=== PATIENT | female | born 1940 | race Caucasian/White ===

== ENCOUNTER 2019-05-15 06:36 | Day surgery (SDC) | payer MEDICARE, SELFPAY ==
--- NOTE | 2019-04-06 05:36 | HP_ITS ---
Intake Vital Signs 04/06/19 Body Mass Index (BMI) 32.5 04/06/19 Height 5 ft 04/06/19 Weight: 162 lb 3 oz 04/06/19 Body Mass Index (BMI) 31.6 04/06/19 Blood Pressure 150/82 H 04/06/19 Blood Pressure Location Rt brachial 04/06/19 Blood Pressure Position Sitting 04/06/19 Respiratory Rate 20 H 04/06/19 Pulse Rate 66 04/06/19 Pulse Ox 98 Intake Visit Reasons: EGD and repeat esophageal stretching Chief Complaint: egd and esophageal dilatation Melt Room Operator Required: No Is patient in pain?: No Allergies sulfamethoxazole [From Bactrim] Allergy (Mild, Verified 04/06/19 15:43) hives trimethoprim [From Bactrim] Allergy (Mild, Verified 04/06/19 15:43) hives Penicillins Allergy (Verified 06/24/15 08:16) Hives Medications Atenolol [Tenormin (beta Leeanne)] 25 mg PO BID 06/24/15 [History Confirmed 04/06/19] Furosemide 40 mg PO PRN PRN 06/24/15 [History Confirmed 04/06/19] Levothyroxine [Synthroid] 25 mcg PO DAILY 06/24/15 [History Confirmed 04/06/19] Meloxicam 15 mg PO DAILY 06/24/15 [History Confirmed 04/06/19] Potassium Chloride 10 meq PO PRN PRN 06/24/15 [History Confirmed 04/06/19] Warfarin [Coumadin (PBKC)] 2.5 mg PO SUTUTHSA 06/24/15 [History Confirmed 04/06/19] Warfarin [Coumadin (PBKC)] 5 mg PO MOWEFR 06/24/15 [History Confirmed 04/06/19] cholecalciferol (vitamin D3) 2,000 unit capsule 2,000 unit PO DAILY 04/06/19 [History Confirmed 04/06/19] glucosamine sulfate 500 mg tablet 500 mg PO BID 04/06/19 [History Confirmed 04/06/19] omega-3 fatty acids 1,000 mg capsule 1,000 mg PO DAILY 04/06/19 [History Confirmed 04/06/19] Is last menstrual period known: No Post menopausal: Yes Patient : No PFSH Medical History (Updated 04/06/19 @ 17:32 by Atul Cagle MD) Dysphagia (Acute) Severe esophageal dysplasia (Acute) Atrial fibrillation (Acute) CHF (congestive heart failure) (Acute) Diverticulosis (Acute) GERD (gastroesophageal reflux disease) (Acute) Hiatal hernia (Acute) History of colon polyps (Acute) Hypothyroidism (Acute) Osteoarthritis (Acute) Polio (Acute) Schatzki's ring (Acute) Surgical History (Updated 04/06/19 @ 15:40 by Noy Salinas) History of colonoscopy (Acute ~2015) History of esophageal dilatation (Acute ~2010) History of esophagogastroduodenoscopy (EGD) (Acute ~2010) History of foot surgery (Acute) History of mitral valve replacement (Acute) History of total hysterectomy (Acute) Family History (Updated 04/06/19 @ 15:41 by Noy Salinas) Brother Heart disease Father Colon cancer Social History (Updated 04/06/19 @ 17:36 by Atul Cagle MD) Smoking Status: Current every day smoker HPI HPI HPI: OVIDIO IBARRA, is a 78 F who presents to the office today for HPI HPI Surgical H&P: Yes HPI: OVIDIO IBARRA, is a 78 F who presents to the office today for surgical consultation today regarding esophageal dysphasia. Quite a complicated 68-year-old [facility] female. We have records from March 04, 2011 but because of dysphagia to meats and breads Dr. Bandar Pisano gastroenterology performed a upper endoscopy. A benign-appearing intrinsic mild stricture was found and traversed. It was treated with a TTS dilator to 18 mm. A small hiatal hernia was present. The patient is referred by Dr. Eric Lorenzo for surgical consultation regarding her progressive esophageal dysphasia and intermittent food bolus obstructions which have become more severe. A written compromise surgical consult recommendations will return to Dr. Lorenzo I have assisted the patient in the past on June 30, 2015 with a colonoscopy with biopsy of a diminutive sessile polyp of the distal sigmoid. The patient has a personal history of colon polyps and myocardial infarction and congestive heart failure and atrial fibrillation. She states that on 1 of her previous colonoscopies she had a significantly irregular heart rate afterwards causing her to be urgently transferred from the outpatient center to the hospital for admission. She goes on to state that she was on a cardiac medicine for 5 years but due to subsequent side effects of it it has been ceased and she currently is rate controlled with metoprolol. She is on chronic Coumadin anticoagulation. She has a mechanical mitral valve. Previously she has been briefly bridged with Lovenox. She has not had her Coumadin taken to full subtherapeutic levels. 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 She expressed an interest in transferring her cardiology care locally if possible ROS General General: Yes fatigue; no weight change, appetite, colon cancer, breast cancer or weakness HEENT HEENT: Yes difficulty swallowing; no eye injury, eye surgery, swollen glands or hoarseness Endo Endocrine: Yes thyroid disease; no diabetes mellitus, thyroid cancer, Hair loss, heat intolerance or cold intolerance Cardio Cardiovascular: Yes murmur, atrial fibrillation and high blood pressure; no pacemaker, heart disease, heart attack, heart stent, palpitations, shortness of breat with exertion or chest pain Additional Details: CHF, mitral valve replacement Resp Respiratory: Yes shortness of breath, No sleep apnea, No cough, No COPD, No asthma, No emphysema, No wheezing Gastro Gastrointestinal: No abdominal pain, No nausea or vomiting, No diarrhea, No constipation, No blood in stool, Yes acid reflux, No hemorrhoids, No ulcers, No gallbladder problem, No black,tarry stools Trey Hematologic: No blood thinners, No blood disorders, No bleeding, No anemia, No blood clots Neuro Neurologic: No weakness Exam Const General: cooperative, comfortable, no acute distress Nutritional Appearance: obese Orientation: alert, awake HENAR Head: normal to inspection Resp Effort & Inspection: normal respiratory effort Auscultation: clear to auscultation bilaterally Cardio Rate: regular rate Rhythm: regular rhythm Heart Sounds: murmur GI Palpation: soft, no hepatosplenomegaly Auscultation: normal bowel sounds Other: Overweight, not able to detect any internal organs Neuro Cognition: normal cognition Extrem General: no calf tenderness bilaterally Psych Affect: normal affect Assessment & Plan Problems 1. Esophageal dysphagia R13.10 Plan I am recommending the patient a esophagogastroduodenoscopy with possible biopsy or polypectomy and anticipated distal esophageal hydrostatic dilatation of anticipated Schatzki ring. She is aware of the technique, benefits, risks, alternatives. We will have her hold her Coumadin 2 days preprocedure and have her initiate Lovenox on the day prior to procedure 40 mg subcu twice daily. I anticipate continuing this through the day of surgery and postoperatively for a total of 3 days As noted above the patient is interested in converting her cardiology care locally. This would be very advantageous as on a previous colonoscopy she had a cardiac arrhythmia to the severity that required transfer from the outpatient surgery center to the hospital for hospitalization and rate control. At her request we will make an appointment with local cardiology Dr. Rhys Calzada. She has had an opportunity to ask and have questions answered. She is aware that esophageal dilatation does have a increased interventional risk. She is aware that her anticoagulation and mitral valve replacement and history of atrial fibrillation with RVR also carries increased risk. We will try to have her maximize prior to endoscopic intervention. I appreciate the ongoing opportunity of assisting with her surgical care CC: Dr. Eric Lorenzo and Dr. Rhys Cagle M.D., F.A.C.S. Coding Level of Care Code 92946 Diagnoses Esophageal dysphagia R13.10 ??Dysphagia type: esophageal phase 04/06/19 1736 <Electronically signed by Atul urrutia MD> Date _ Atul Cagle MD I have re-examined the patient. There are no clinical changes since date of exam.
[2019-04-06 15:46] VITALS: BMI 32.5
[2019-04-26 09:45] VITALS: BMI 32.0
[2019-05-15] VITALS (16 sets, daily range): BP systolic 105–132; BP diastolic 61–93; PULSE 59–77; RESP 14–18; TEMP 36.3–36.5; O2SAT 73–100; BMI 31.3
[2019-05-15 07:24] LABS: International Normalized Ratio 1.5; Prothrombin Time (Protime)PT. 18.1 SECONDS (11.7-14.9)
[2019-05-15] MEDS: Lactated Ringers 1,000 ML 100 ML IV (07:24)
--- NOTE | 2019-05-15 07:45 | EGD_PTH ---
PATIENT: OVIDIO IBARRA LOC: EN U#:[id number] AGE/SX: 78/F ROOM: RE05/15/[address]: Dr. Atul Cagle MD : 1940 BED: DIS: 05/15/2019 SPEC #: [id number] RECD: 05/15/19 09:29 STATUS: RADAMES JUAQUIN #: [id number] RAYNA: 05/15/19 07:[address]: Atul Cagle DEPT: SURGICAL PATHOLOGY RECD BY: Abel Reaves ENTERED: 05/15/19 11:03 SP TYPE: EGD BIOPSY OTHR DR: Dr. Yassine Lorenzo MD Tissues: A - Duodenum, NOS B - Gastric mucous membrane C - Gastric mucous membrane Procedures: Special Stain Group II Surgery Specimen Level IV Alcian Blue/PAS (control) HEADER OPERATION: EGD ([facility] [place]) with dilation PRE-OP DIAGNOSIS: Dysphagia TISSUE SUBMITTED: A - Duodenal biopsy, B - Antrum biopsy for histo and H. pylori, C - EG junction MICROSCOPIC DIAGNOSIS A. Duodenum, biopsy: No pathologic diagnosis. B. Gastric antrum, biopsy: Mild to moderate chronic gastritis. See comment. C. Gastroesophageal junction, biopsy: Mild chronic inflammation. Focal changes of reflux. No evidence of intestinal metaplasia. See comment. AM:romeo 05/16/19 COMMENT B. The results of immunohistochemistry for Helicobacter pylori will be reported separately ([id number]). C. Alcian blue/PAS stain with matched control is used in the evaluation of the specimen. MICROSCOPIC DESCRIPTION Slides are reviewed. GROSS DESCRIPTION A - Received in fixative is one container labeled with the patient's name and designated duodenal biopsy. The specimen consists of multiple irregular fragments of light jimenez soft tissue that in aggregate measure 0.4 x 0.3 x 0.1 cm. The specimen is totally submitted in one cassette. B - Received in fixative is one container labeled with the patient's name and designated antrum biopsy. The specimen consists of two irregular fragments of light jimenez soft tissue that in aggregate measure 0.5 x 0.2 x 0.1 cm. The specimen is totally submitted in one cassette. C - Received in fixative is one container labeled with the patient's name and designated EG junction biopsy. The specimen consists of two irregular fragments of light jimenez soft tissue that in aggregate measure 0.6 x 0.3 x 0.1 cm. The specimen is totally submitted in one cassette. / SJ:rg 05/15/19 TC:3 CPT: 97844 x3, 64278
--- NOTE | 2019-05-15 07:45 | IMM_PTH ---
PATIENT: OVIDIO IBARRA LOC: EN U#:[id number] AGE/SX: 78/F ROOM: RE05/15/[address]: Dr. Atul Cagle MD : 1940 BED: DIS: 05/15/2019 SPEC #: [id number] RECD: 05/15/19 12:07 STATUS: RADAMES REBryson #: [id number] RAYNA: 05/15/19 07:[address]: Atul Cagle DEPT: IMMUNOHISTOCHEMISTRY RECD BY: Siobhan Jeter ENTERED: 05/15/19 12:08 SP TYPE: IMMUNO OTHR DR: Dr. Yassine Lorenzo MD Tissues: B - Stomach, NOS Procedures: H Pylori (initial) PHYSICIAN & INSTITUTION [place] [id number] SPECIMEN INFORMATION: Tissue Source: B - Antrum biopsy Clinical Info: Dysphagia Specimen Number: [id number] CPT code: 68654 METHODOLOGY: Deparaffinized sections of prefer/formalin-fixed tissue or PAP/DQ stained slides are incubated with monoclonal/polyclonal antibodies/oligonucleotide probes. Localization is made via biotin free immunoperoxidase method. Appropriate controls are performed and reacted as expected. Results on target cell population are indicated in the following table: RESULTS: ANTIBODY / CLONE RESULT Block B H Pylori (polyclonal) negative These tests were developed and their performance characteristics determined by [facility]. They may not have been cleared or approved by the U.S. Food and Drug Administration. The FDA has determined that such clearance or approval is not necessary. INTERPRETATION: B. Antrum biopsy: Negative for Helicobacter pylori organisms. AM:romeo 05/17/19
[2019-05-15] MEDS: Ceftriaxone 1 GM/50 mL Premix x1 IV (07:55)
--- NOTE | 2019-05-15 08:00 | HP_ITS ---
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: No Is patient in pain?: No Allergies sulfamethoxazole [From Bactrim] Allergy (Mild, Verified 04/06/19 15:43) hives trimethoprim [From Bactrim] Allergy (Mild, Verified 04/06/19 15:43) hives Penicillins Allergy (Verified 06/24/15 08:16) Hives Medications Atenolol [Tenormin (beta Leeanne)] 25 mg PO BID 06/24/15 [History Confirmed 04/06/19] Furosemide 40 mg PO PRN PRN 06/24/15 [History Confirmed 04/06/19] Levothyroxine [Synthroid] 25 mcg PO DAILY 06/24/15 [History Confirmed 04/06/19] Meloxicam 15 mg PO DAILY 06/24/15 [History Confirmed 04/06/19] Potassium Chloride 10 meq PO PRN PRN 06/24/15 [History Confirmed 04/06/19] Warfarin [Coumadin (PBKC)] 2.5 mg PO SUTUTHSA 06/24/15 [History Confirmed 04/06/19] Warfarin [Coumadin (PBKC)] 5 mg PO MOWEFR 06/24/15 [History Confirmed 04/06/19] cholecalciferol (vitamin D3) 2,000 unit capsule 2,000 unit PO DAILY 04/06/19 [History Confirmed 04/06/19] glucosamine sulfate 500 mg tablet 500 mg PO BID 04/06/19 [History Confirmed 04/06/19] omega-3 fatty acids 1,000 mg capsule 1,000 mg PO DAILY 04/06/19 [History Confirmed 04/06/19] Is last menstrual period known: No Post menopausal: Yes Patient : No PFSH Medical History (Updated 04/06/19 @ 17:32 by Atul Cagle MD) Dysphagia (Acute) Severe esophageal dysplasia (Acute) Atrial fibrillation (Acute) CHF (congestive heart failure) (Acute) Diverticulosis (Acute) GERD (gastroesophageal reflux disease) (Acute) Hiatal hernia (Acute) History of colon polyps (Acute) Hypothyroidism (Acute) Osteoarthritis (Acute) Polio (Acute) Schatzki's ring (Acute) Surgical History (Updated 04/06/19 @ 15:40 by Noy Salinas) History of colonoscopy (Acute ~2015) History of esophageal dilatation (Acute ~2010) History of esophagogastroduodenoscopy (EGD) (Acute ~2010) History of foot surgery (Acute) History of mitral valve replacement (Acute) History of total hysterectomy (Acute) Family History (Updated 04/06/19 @ 15:41 by Noy Salinas) Brother Heart disease Father Colon cancer Social History (Updated 04/06/19 @ 17:36 by Atul Cagle MD) Smoking Status: Current every day smoker HPI HPI HPI: OVIDIO IBARRA, is a 78 F who presents to the office today for HPI HPI Surgical H&P: Yes HPI: OVIDIO IBARRA, is a 78 F who presents to the office today for surgical consultation today regarding esophageal dysphasia. Quite a complicated 68-year-old [facility] female. We have records from March 04, 2011 but because of dysphagia to meats and breads Dr. Bandar Pisano gastroenterology performed a upper endoscopy. A benign-appearing intrinsic mild stricture was found and traversed. It was treated with a TTS dilator to 18 mm. A small hiatal hernia was present. The patient is referred by Dr. Eric Lorenzo for surgical consultation regarding her progressive esophageal dysphasia and intermittent food bolus obstructions which have become more severe. A written compromise surgical consult recommendations will return to Dr. Lorenzo I have assisted the patient in the past on June 30, 2015 with a colonoscopy with biopsy of a diminutive sessile polyp of the distal sigmoid. The patient has a personal history of colon polyps and myocardial infarction and congestive heart failure and atrial fibrillation. She states that on 1 of her previous colonoscopies she had a significantly irregular heart rate afterwards causing her to be urgently transferred from the outpatient center to the hospital for admission. She goes on to state that she was on a cardiac medicine for 5 years but due to subsequent side effects of it it has been ceased and she currently is rate controlled with metoprolol. She is on chronic Coumadin anticoagulation. She has a mechanical mitral valve. Previously she has been briefly bridged with Lovenox. She has not had her Coumadin taken to full subtherapeutic levels. 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 She expressed an interest in transferring her cardiology care locally if possible ROS General General: Yes fatigue; no weight change, appetite, colon cancer, breast cancer or weakness HEENT HEENT: Yes difficulty swallowing; no eye injury, eye surgery, swollen glands or hoarseness Endo Endocrine: Yes thyroid disease; no diabetes mellitus, thyroid cancer, Hair loss, heat intolerance or cold intolerance Cardio Cardiovascular: Yes murmur, atrial fibrillation and high blood pressure; no pacemaker, heart disease, heart attack, heart stent, palpitations, shortness of breat with exertion or chest pain Additional Details: CHF, mitral valve replacement Resp Respiratory: Yes shortness of breath, No sleep apnea, No cough, No COPD, No asthma, No emphysema, No wheezing Gastro Gastrointestinal: No abdominal pain, No nausea or vomiting, No diarrhea, No constipation, No blood in stool, Yes acid reflux, No hemorrhoids, No ulcers, No gallbladder problem, No black,tarry stools Trey Hematologic: No blood thinners, No blood disorders, No bleeding, No anemia, No blood clots Neuro Neurologic: No weakness Exam Const General: cooperative, comfortable, no acute distress Nutritional Appearance: obese Orientation: alert, awake HENRI Head: normal to inspection Resp Effort & Inspection: normal respiratory effort Auscultation: clear to auscultation bilaterally Cardio Rate: regular rate Rhythm: regular rhythm Heart Sounds: murmur GI Palpation: soft, no hepatosplenomegaly Auscultation: normal bowel sounds Other: Overweight, not able to detect any internal organs Neuro Cognition: normal cognition Extrem General: no calf tenderness bilaterally Psych Affect: normal affect Assessment & Plan Problems 1. Esophageal dysphagia R13.10 Plan I am recommending the patient a esophagogastroduodenoscopy with possible biopsy or polypectomy and anticipated distal esophageal hydrostatic dilatation of anticipated Schatzki ring. She is aware of the technique, benefits, risks, alternatives. We will have her hold her Coumadin 2 days preprocedure and have her initiate Lovenox on the day prior to procedure 40 mg subcu twice daily. I anticipate continuing this through the day of surgery and postoperatively for a total of 3 days As noted above the patient is interested in converting her cardiology care locally. This would be very advantageous as on a previous colonoscopy she had a cardiac arrhythmia to the severity that required transfer from the outpatient surgery center to the hospital for hospitalization and rate control. At her request we will make an appointment with local cardiology Dr. Rhys Calzada. She has had an opportunity to ask and have questions answered. She is aware that esophageal dilatation does have a increased interventional risk. She is aware that her anticoagulation and mitral valve replacement and history of atrial fibrillation with RVR also carries increased risk. We will try to have her maximize prior to endoscopic intervention. I appreciate the ongoing opportunity of assisting with her surgical care CC: Dr. Eric Lorenzo and Dr. Rhys Cagle M.D., F.A.C.S. Coding Level of Care Code 42453 Diagnoses Esophageal dysphagia R13.10 ??Dysphagia type: esophageal phase
[2019-05-15 08:16] LABS: Prothrombin Time Fingerstick 18.9 SEC (11.9-14.4)
--- NOTE | 2019-05-15 08:21 | OP.EGD_ITS ---
Patient Name: Gisell Vargas Procedure Date: 05/15/2019 7:46 AM Date of : 1940 Age: 78 Procedure: Upper GI endoscopy Indications: Dysphagia Providers: Atul Cagle MD Medicines: See the Anesthesia note for documentation of the administered medications Complications: No immediate complications. Procedure: Pre-Anesthesia Assessment: - Prior to the procedure, a History and Physical was performed, and patient medications and allergies were reviewed. The patient's tolerance of previous anesthesia was also reviewed. The risks and benefits of the procedure and the sedation options and risks were discussed with the patient. All questions were answered, and informed consent was obtained. Prior Anticoagulants: The patient has taken Coumadin (warfarin), last dose was 2 days prior to procedure. ASA Grade Assessment: II - A patient with mild systemic disease. After reviewing the risks and benefits, the patient was deemed in satisfactory condition to undergo the procedure. After obtaining informed consent, the endoscope was passed under direct vision. Throughout the procedure, the patient's blood pressure, pulse, and oxygen saturations were monitored continuously. The gastroscope was introduced through the mouth, and advanced to the second part of duodenum. The upper GI endoscopy was accomplished without difficulty. The patient tolerated the procedure well. Scope In: 7:59:34 AM Scope Out: 8:11:54 AM Total Procedure Duration Time 0 hours 12 minutes 20 seconds Findings: LA Grade B (one or more mucosal breaks greater than 5 mm, not extending between the tops of two mucosal folds) esophagitis with bleeding was found 35 cm from the incisors. Biopsies were taken with a cold forceps for histology. A moderate Schatzki ring was found at the gastroesophageal junction. A TTS dilator was passed through the scope. Dilation with an 18-19-20 mm balloon dilator was performed to 20 mm. The dilation site was examined and showed moderate improvement in luminal narrowing. Estimated blood loss was minimal. Diffuse mild inflammation characterized by erythema was found in the gastric antrum. Biopsies were taken with a cold forceps for histology. Diffuse mildly erythematous mucosa without active bleeding and with no stigmata of bleeding was found in the duodenal bulb. Biopsies were taken with a cold forceps for histology. Impression: - LA Grade B reflux esophagitis. Biopsied. - Moderate Schatzki ring. Dilated. - Chronic gastritis. Biopsied. - Erythematous duodenopathy. Biopsied. Recommendation: - Discharge patient to home. - Resume previous diet. - Continue present medications. - Use Prilosec (omeprazole) 20 mg PO daily. - Telephone my office for pathology results in 1 week. Procedure Code(s): --- Professional --- 06072, Esophagogastroduodenoscopy, flexible, transoral; with transendoscopic balloon dilation of esophagus (less than 30 mm diameter) 23594, 59, Esophagogastroduodenoscopy, flexible, transoral; with biopsy, single or multiple Diagnosis Code(s): --- Professional --- K21.0, Gastro-esophageal reflux disease with esophagitis K22.2, Esophageal obstruction K29.50, Unspecified chronic gastritis without bleeding K31.89, Other diseases of stomach and duodenum R13.10, Dysphagia, unspecified CPT copyright 2017 [employer]. All rights reserved. The codes documented in this report are preliminary and upon welding setter review may be revised to meet current compliance requirements. Atul Cagle MD 05/15/2019 8:20:52 AM This report has been signed electronically. Number of Addenda: 0 Note Initiated On: 05/15/2019 7:46 AM
== END 2019-05-15 10:23 | disposition home or self-care (01) ==
LOC: EN 06:37 → AC 07:06
PROVIDERS: Family Provider Family Medicine; PCP Family Medicine; Referring Provider Family Medicine; Visit Provider Surgery
PROC: 0DJ08ZZ Inspection of Upper Intestinal Tract, Via Natural or Artificial Opening Endoscopic (ICD-10-PCS; CPT 43235; principal; 2019-05-15 07:40)
DX: K21.0 Gastro-esophageal reflux disease with esophagitis (principal); K22.2 Esophageal obstruction; K29.50 Unspecified chronic gastritis without bleeding; K31.89 Other diseases of stomach and duodenum; R13.10 Dysphagia, unspecified; I48.91 Unspecified atrial fibrillation; I50.9 Heart failure, unspecified; I25.2 Old myocardial infarction; E03.9 Hypothyroidism, unspecified; M19.90 Unspecified osteoarthritis, unspecified site; E66.9 Obesity, unspecified; Z68.32 Body mass index [BMI] 32.0-32.9, adult; Z79.01 Long term (current) use of anticoagulants; Z79.899 Other long term (current) drug therapy; F17.200 Nicotine dependence, unspecified, uncomplicated
CPT/HCPCS: 43239; 43249; 36416; 85610; 88305; 88313; 88342; J7120; J2405

== ENCOUNTER 2019-05-26 19:21 | Inpatient (IN) | payer MEDICARE, SELFPAY ==
[2019-05-15 07:18] VITALS: BMI 31.3
[2019-05-26] VITALS (11 sets, daily range): BP systolic 168–211; BP diastolic 81–95; PULSE 66–78; RESP 16–18; TEMP 36.5–36.8; O2SAT 96–98; BMI 31.8; BMI 31.7
--- NOTE | 2019-05-26 19:40 | EKG12_ITS ---
Test Reason : STROKE ALERT Blood Pressure : / mmHG Vent. Rate : 071 BPM Atrial Rate : 208 BPM P-R Int : 000 ms QRS Dur : 098 ms QT Int : 414 ms P-R-T Axes : 000 034 039 degrees QTc Int : 449 ms Atrial fibrillation Abnormal ECG Confirmed by MIKE ROBLES, FLY ([id number]), news copy editor WAGNER GARCIA ([id number]) on 05/30/2019 12:59:12 PM Referred By: Lisa Baker Confirmed By:FLY MCKEON MD
--- NOTE | 2019-05-26 19:40 | CT_ITS ---
We are attempting to reach an attending provider to discuss findings. An addendum with communication details will be sent when the communication is complete. STUDY: CT BRAIN WITHOUT CONTRAST REASON FOR EXAM: Female, 78 years old. Left upper extremity weakness RADIATION DOSAGE (If Supplied By Facility): CTDIvol = ( 44.99 ) mGy, DLP = ( 779.24 ) mGycm TECHNIQUE: Transaxial CT imaging of the brain was performed without administration of intravenous contrast material. Individualized dose optimization techniques were used for this CT. COMPARISON: No relevant priors. FINDINGS: Normal soft tissue structures. Hyperostosis frontalis interna. Remote deformity of the left lamina papyracea. Normal size ventricles and extra-axial spaces for the patient''s age. There are areas of decreased attenuation within the white matter tracts of the supratentorial brain, consistent with microvascular disease changes. Normal age-related changes of the basal ganglia. Normal brainstem. Normal cerebellum. There is no intracranial hemorrhage. There are no findings of an acute ischemic infarction. Normal visualized paranasal sinuses. CT/Brain/Head without Contrast IMPRESSION: No CT evidence of acute infarct or hemorrhage. If there is clinical concern for hyperacute ischemia that is not evident by CT, MRI should be considered if possible. Electronically Signed: Aramis Kaiser MD at 19:59 EST Tel , Service support ,
--- NOTE | 2019-05-26 19:41 | CT_ITS ---
STUDY: CTA HEAD AND NECK WITH CONTRAST REASON FOR EXAM: Female, 78 years old. Left upper extremity weakness RADIATION DOSAGE (If Supplied By Facility): CTDIvol = ( 21.09 ) mGy, DLP = ( 603.46 ) mGycm TECHNIQUE: CT angiography was performed with a multi-detector CT scanner. Data acquisition was obtained from the skull base through the vertex following intravenous administration of Isovue 370 75ml. MIP images were reconstructed from the axial data set. Post-processing of the angiographic images was performed, with multiplanar reformation and 3D reconstruction. Individualized dose optimization techniques were used for this CT. COMPARISON: No relevant priors. FINDINGS: Intracranial ICA calcifications. Otherwise: Normal bilateral petrous carotid arteries. Normal right cavernous carotid artery with a normal supraclinoid bifurcation. Normal left cavernous carotid artery with a normal supraclinoid bifurcation. Normal right A1 segments of the anterior cerebral artery. Normal left A1 segments of the anterior cerebral artery. Normal intact anterior communicating artery (ACOM). Normal bilateral A2 segments of the anterior cerebral arteries. Normal right M1 and M2 segments of the middle cerebral arteries, with a normal M1 bifurcation. Normal left M1 and M2 segments of the middle cerebral arteries, with a normal M1 bifurcation. Normal right posterior communicating artery (PCOM). There is non-visualization of the left posterior communicating artery (PCOM). Normal bilateral vertebral arteries. Normal basilar artery with a normal basilar bifurcation. The visualized bilateral superior cerebellar (SCA) arteries are normal. Normal bilateral P1, P2 and visualized P3 segments of the posterior cerebral arteries. There is no demonstrated aneurysm of the [place]. There is no demonstrated abnormality of the visualized brain. AORTIC ARCH: Normal visualized aortic arch. Normal origins of the brachiocephalic, left common carotid, and left subclavian arteries. RIGHT CAROTID ARTERIES: Normal right common carotid artery (CCA). Mild eccentric calcified bulb plaque without underlying stenosis. Normal origin of the right internal carotid (ICA) artery without a hemodynamically significant stenosis. Normal visualized cervical portion of the right internal carotid artery. Normal origin of the right external carotid artery (ECA). LEFT CAROTID ARTERIES: Normal left common carotid artery (CCA). Normal left common carotid bulb. Normal origin of the left internal carotid (ICA) artery without a hemodynamically significant stenosis. Normal visualized cervical portion of the left internal carotid artery. Normal origin of the left external carotid artery (ECA). VERTEBRAL ARTERIES: Normal bilateral vertebral arteries. Median sternotomy wires. CT/CTA Head AND Neck W/ Contrast IMPRESSION: No CTA evidence of significant intracranial arterial pathology. No CTA evidence of significant arterial pathology in the neck. NASCET criteria was used. Electronically Signed: Aramis Kaiser MD at 20:25 EST Tel , Service support ,
--- NOTE | 2019-05-26 19:42 | ED.DCSUM_ITS ---
History of Present Illness Chief Complaint: Numb/Ting Informant: Patient, Significant Other Onset: Today Context: Sudden Onset Timing: Continuous Quality and Location: Left Facial Droop, Left Arm Parasthesia, Left Arm Weakness Current Severity: Mild Maximum Severity: Moderate Worsened by: Nothing Relieved by: Nothing Associated Symptoms: Negative for: Headache, Nausea, Vomiting, Chest Pain Narrative: 8-year-old woman history of mitral valve replacement on Coumadin who presents with numbness left upper extremity predominately hand with difficulty using left upper extremity and facial droop that was first noted at 1815. She has no other symptoms or complaints. She states she is on atenolol and Coumadin. She does not know doses. Do not know what other meds she is on. Prior similar symptoms: No Recent Illness/Hospitalization: No - Past Medical History (1) Chronic atrial fibrillation Status: Chronic (2) Dysphagia Status: Chronic (3) Rheumatic mitral stenosis Status: Chronic Comment: [facility] (4) History of mitral valve replacement with mechanical valve Status: Resolved Comment: #[facility] 11/11/1998 Past Medical History - Allergies and Home Meds Allergies/Adverse Reactions: Allergies sulfamethoxazole [From Bactrim] Allergy (Mild, Verified 05/26/19 19:24) hives trimethoprim [From Bactrim] Allergy (Mild, Verified 05/26/19 19:24) hives Penicillins Allergy (Verified 05/26/19 19:24) Hives Primary Care Physician: Yassine Lorenzo MD [Primary Care Provider] - Prior records reviewed: Yes Surgical History: - - Prosthetic mitral valve Lives: Spouse/ Significant Other Smoking Status: Never smoker Alcohol: None Drugs: None Review of Systems General: Denies: Chills, Fever, Sweats Eyes: Denies: Visual changes - bilaterally, Blurred Vision - bilaterally, Diplopia ENT: Denies: Rhinorrhea, Sore throat Cardiovascular: Denies: Chest pain, Palpitations Respiratory: Denies: Dyspnea, Cough, Dyspnea on exertion Gastrointestinal: Denies: Abdominal pain, Nausea, Vomiting, Diarrhea, Melena, Hematochezia Genitourinary: Denies: Dysuria, Hematuria, Frequency Musculoskeletal: Denies: Myalgias, Arthralgias, Neck pain, Back pain, Swelling, Extremity Pain Skin: Denies: Rash, Wounds Neurological: Reports: Weakness, Parasthesia, Numbness. Denies: Headache Hematologic: Denies: Easy bruising, Easy bleeding STROKE Vital Signs/Narrative: Vital Signs Temp Pulse Resp BP Pulse Ox 05/26/19 19:23 98.3 F 66 18 181/92 H 98 Inital Vital Signs reviewed: Yes - NIHSS Initial 1a Level of Consciousness: 0 1b LOC Questions (Score 2 if aphasic/stupor): 0 1c LOC Commands (Only score 1st attempt): 0 2 Best Gaze (If aphasic, use reflexive mvmts.): 0 3 Visual: 0 4 Facial Palsy: 1 5 Motor Arm Right (UN = amputation/fusion): 0 5 Motor Arm Left: 0 6 Motor Leg Right: 0 6 Motor Leg Left: 0 7 Limb ataxia (Only + if out of proportion): 0 8 Sensory (Aphasia/stupor=0 or 1, coma=2): 1 9 Best Language: 0 10 Dysarthria (mute, coma=2, intubated=UN): 0 11 Extinction and Inattention (only scored if +): 0 Total Score: 2 General: Well nourished, Well developed, Obese Head: Normocephalic, Atraumatic. Negative for: Trauma, Tenderness Eyes: Perrl, EOMI. Negative for: Pale conjunctiva, Scleral icterus ENT: Moist mucous membranes, No rhinorrhea, - - Negative for carotid bruits Neck: Supple, Nontender, No lymphadenopathy, No JVD, - Cardiovascular: Regular rhythm, No murmurs, Normal S1, Normal S2, Irregular, - - Prosthetic valve noted Respiratory: No distress, CTA bilaterally, Chest nontender Abdomen: Soft, Nontender, Nondistended, Normal bowel sounds Rectal: Deferred Back: Nontender, Normal Inspection Extremities: Nontender, No edema Skin: Normal color, No Trauma, Pallor. Negative for: Cyanosis, Diaphoresis, Jaundice Neurological: Alert, Oriented x3, Normal Strength, Normal Sensation, Normal DTR. Negative for: Cranial nerves II-XII grossly intact Psychological: Normal affect Diagnostic/Tx/Re-eval Impressions Brain CT 05/26/19 19:40 IMPRESSION: No CT evidence of acute infarct or hemorrhage. If there is clinical concern for hyperacute ischemia that is not evident by CT, MRI should be considered if possible. Electronically Signed: Aramis Kaiser MD at 19:59 EST Tel , Service support , ADDENDUM: 05/26/192009 IMPRESSION: No CT evidence of acute infarct or hemorrhage. If there is clinical concern for hyperacute ischemia that is not evident by CT, MRI should be considered if possible. N.B. : The above information has been verbally conveyed by Aramis Kaiser MD to Raghu Hunt MD, on 05/26/2019 20:03:45 (ET). Electronically Signed: Aramis Kaiser MD at 19:59 EST Tel , Service support , Head/Neck CTA 05/26/19 19:41 IMPRESSION: No CTA evidence of significant intracranial arterial pathology. No CTA evidence of significant arterial pathology in the neck. NASCET criteria was used. Electronically Signed: Aramis Kaiser MD at 20:25 EST Tel , Service support , 05/26/19 19:40 Brain/Head without Contrast [CT] Stat 05/26/19 19:41 CTA Head AND Neck W/ Contrast [CT] Stat Laboratory Results 05/26/19 05/26/19 05/26/19 19:40 20:01 20:01 WBC 5.2 RBC 4.01 L Hgb 13.3 Hct 39.1 MCV 97.5 MCH 33.2 H MCHC 34.0 RDW Std Deviation 46.5 H RDW Coeff of [place] 13.1 Plt Count 111 L MPV 11.1 Immature Gran % (Auto) 0.200 Neut % (Auto) 48.8 Lymph % (Auto) 34.4 [place] % (Auto) 13.5 H Eos % (Auto) 2.7 Baso % (Auto) 0.4 Absolute Neuts (auto) 2.5 Absolute Lymphs (auto) 1.78 Nucleated RBC % 0 PT 36.2 H INR 3.6 H* APTT 53.1 H Sodium Potassium Chloride Carbon Dioxide Anion Gap BUN Creatinine Estim Creat Clear Calc Est GFR (MDRD) Af Amer Est GFR (MDRD) Non-Af BUN/Creatinine Ratio Glucose Calcium POC Glucose 104 05/26/19 20:01 WBC RBC Hgb Hct MCV MCH MCHC RDW Std Deviation RDW Coeff of [place] Plt Count MPV Immature Gran % (Auto) Neut % (Auto) Lymph % (Auto) [place] % (Auto) Eos % (Auto) Baso % (Auto) Absolute Neuts (auto) Absolute Lymphs (auto) Nucleated RBC % PT INR APTT Sodium 148 H Potassium 3.0 L Chloride 118 H Carbon Dioxide 26.0 Anion Gap 4 L BUN 15 Creatinine 0.66 Estim Creat Clear Calc 34.38 Est GFR (MDRD) Af Amer 111 Est GFR (MDRD) Non-Af 92 BUN/Creatinine Ratio 22.7 H Glucose 78 Calcium 6.5 L* POC Glucose There is elevated 3.6 which eliminates patient from TPA. Furthermore symptoms are improving and NAH at the time the neurologist from [facility] performed her exam the NIH had decreased to 1. Calcium is low at 6.5. Will inform hospitalist of this fact. Will need to obtain albumin and possibly ionized calcium level. This may be the cause of her numbness but would not expect this to be the cause of her focal motor deficit. - EKG Initial EKG Interpretation: Atrial Fibrillation - Rate of 71. QRS duration is 80 ms. QT durations normal. There is no ischemic changes noted. - Medical Decision Making Stroke Team Activated: Yes Reviewed Inclusion/Exclusion criteria: Yes Was Patient considered for Endovascular Intervention?: Yes History and physical consistent what right hemispheric stroke. Since patient is on Coumadin nurse was asked to draw blood work for PT/INR immediately. CT of the head as well as CTA of the head and neck was ordered. Since there is a history of atrial fib one needs to consider embolic phenomenon as well as thrombotic phenomenon. 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
[2019-05-26 19:46] LABS: Bedside Glucose 104 mg/dL (70-110)
[2019-05-26 20:11] LABS: Absolute Lymphocyte Count 1.78 X10^3/uL (0.83-4.51); Absolute Neutrophil Count 2.5 X10^3/uL (2.0-7.7); Basophil# 0.02 X10^3/uL; Basophil% 0.4 % (0-1); Eosinophil# 0.14 X10^3/uL; Eosinophils% 2.7 % (0-5); Hematocrit 39.1 % (37-47); Hemoglobin 13.3 g/dL (12.0-15.0); Lymphocyte # 1.78 X10^3/ul (4.0); Lymphocyte % 34.4 % (19-41); Mean Corpuscular Hgb 33.2 pg (27.0-32.0); Mean Corpuscular Volume 97.5 fL (81-99); Mean Platelet Vol. 11.1 fl (6.2-12.0); Monocyte% 13.5 % (0-10); NRBC Flagged by Analyzer 0 % (0-5); Neutrophil # 2.52 X10^3/uL (2.7-7.7); Neutrophil % 48.8 % (47-70); Platelet Count 111 K/mm3 (150-450); RBC Distribution Width CV 13.1 % (11.6-14.6); RBC Distribution Width SD 46.5 fl (35.1-43.9); Red Blood Count 4.01 M/mm3 (4.2-5.4); White Blood Count 5.2 K/mm3 (4.4-11.0)
[2019-05-26 20:22] LABS: Prothrombin Time (Protime)PT. 36.2 SECONDS (11.7-14.9)
[2019-05-26 20:23] LABS: Partial Thromboplast Time 53.1 Seconds (24.1-36.2)
[2019-05-26 20:28] LABS: International Normalized Ratio 3.6
[2019-05-26 20:50] LABS: Anion Gap 4 (5-15); BUN 15 mg/dL (7-18); BUN/Creat Ratio 22.7 RATIO (10-20); Calcium,Total 6.5 mg/dL (8.5-10.1); Chloride 118 mmol/L (98-107); Creatinine, Serum 0.66 mg/dL (0.55-1.02); EST Glomerular Filtration Rate 92 mL/min (>60); Est Glom Filt Rate - Afr Amer 111 mL/min (>60); Estimated Creatinine Clearance 34.38 ml/min; Glucose 78 mg/dL (74-106); Sodium Level 148 mmol/L (136-145)
[2019-05-26 21:51] LABS: Albumin, Serum 2.6 g/dL (3.2-5.0)
[2019-05-27] VITALS (12 sets, daily range): BP systolic 117–152; BP diastolic 64–81; PULSE 55–86; RESP 16–18; TEMP 36.3–36.7; O2SAT 95–97; BMI 31.7
--- NOTE | 2019-05-27 00:29 | ECHOD_ITS ---
Reason For Study: TIA/CVA Procedure This was a 2D Doppler, Color Flow transthoracic echocardiogram. Exam performed portable in patient room. Left Ventricle Normal LV size. Mild concentric left ventricular hypertrophy. Left ventricular systolic function is lower limits of normal. The estimated ejection fraction is 50 %. Right Ventricle Normal RV size. Normal systolic function. Atria The left atrium is moderately enlarged. Normal right atrium. Mitral Valve There is mild mitral annular calcification. Mean transmitral valve gradient 3.5 mmHg. Stable appearing mechanical mitral valve apparatus. Tricuspid Valve Normal tricuspid valve. Mild (1+) tricuspid valve insufficiency. Pulmonary artery systolic pressure is 26 mmHg. Aortic Valve Trisinus/trileaflet aortic valve. Mild (1+) aortic valve insufficiency. Pulmonic Valve The pulmonic valve is not well visualized. Great Vessels Normal aortic root. The pulmonary artery is normal size. Normal inferior vena cava. Pericardium/Pleural No pericardial effusion. Medication Performed a rapid injection of agitated mix of 9 cc saline and 1cc air to assess for atrial septal defect. MMode/2D Measurements & Calculations LVIDd: 3.7 cm IVSd: 1.3 cm Ao root diam: 3.1 cm LVIDs: 2.4 cm LVPWd: 1.3 cm FS: 33.4 % LAV(MOD-bp): 152.0 ml LA A4 area: 29.5 cm2 LA dimension(2D): 6.1 cm LAV(MOD-bp) Indexed: 89.1 ml/m2 LAV(MOD-sp2): 173.5 ml LAV(MOD-sp4): 108.0 ml RA A4 area: 17.0 cm2 Doppler Measurements & Calculations MV E max roxanna: 135.1 cm/sec MV V2 max: 151.3 cm/sec MV P1/2t max roxanna: 146.1 cm/sec MV max P.2 mmHg MV P1/2t: 60.9 msec MV V2 mean: 85.5 cm/sec MV dec slope: 703.2 cm/sec2 MV mean P.5 mmHg MV V2 VTI: 22.0 cm MVA(P1/2t): 3.6 cm2 Ao V2 max: 97.4 cm/sec LV V1 max: 62.1 cm/sec PA V2 max: 62.6 cm/sec Ao max P.8 mmHg LV V1 max P.5 mmHg TR max roxanna: 238.7 cm/sec TR max P.8 mmHg Interpretation Summary Normal LV size. Mild concentric left ventricular hypertrophy. The left atrium is moderately enlarged. Left ventricular systolic function is lower limits of normal. The estimated ejection fraction is 50 %. Stable appearing mechanical mitral valve apparatus. Mean transmitral valve gradient 3.5 mmHg. Ordering Physician: Lisa Baker Referring Physician: Lisa Baker Performed By: Yeny Fung RDCS
[2019-05-27] MEDS: 0.9% Normal Saline 1,000 ML 50 ML IV (01:20)
[2019-05-27] MEDS: 0.9% Saline Lock 10 ML Syringe IV (01:33)
--- NOTE | 2019-05-27 02:06 | PCM.HP.STD ---
Problem List (1) CVA (cerebral vascular accident) Status: Acute Qualifiers: CVA mechanism: unspecified Qualified Code(s): I63.9 - Cerebral infarction, unspecified History of Present Illness Date of Admission: 05/26/19 The patient is a 78 year old F who was normal until 17:44 this evening when she was sitting at the table trying to open the jelly jar and had acute onset of L hand numbness and uncoordination. She is R handed. She did not have slurred speech and per family she has a bit of chronic facial droop on the L and it was no nor pronounced than usual. Per the daughter her responses were delayed a bit. Her family reports that she is now back to her baseline. She has a h/o A-fib and mechanical mitral valve replacement and is on OAC with coumadin. Her last INR as an outpt was this past Tuesday and was 2.6. No changes were made at that time. INR here today is 3.6. She does admit that she was off of her coumadin on May 13 and for and EGD that was done on 05/15. She restarted her coumadin on the . Her INR are unknown during that time period or the few days following. NIH is currently 0. No tPA was given as her sx resolved and she is on coumadin with at therapeutic desired range of 2.5-3.5. Past Medical History Past Medical History (Chronic Problems): Chronic Problems (Last Reviewed 05/27/19 @ 00:19 by Lisa Baker DO) Chronic atrial fibrillation (Chronic) Rheumatic mitral stenosis (Chronic) #29 [facility] [place] Dysphagia (Chronic) Medical History: Medical History (Last Reviewed 05/27/19 @ 00:19 by Lisa Baker DO) Chronic atrial fibrillation (Chronic) I48.20 Rheumatic mitral stenosis (Chronic) I05.[address] [place] Dysphagia (Chronic) R13.10 Diverticulosis K57.90 GERD (gastroesophageal reflux disease) K21.9 Hiatal hernia K44.9 History of colon polyps Z86.010 Hypothyroidism E03.9 Obesity E66.9 Osteoarthritis M19.90 Polio A80.9 Schatzki's ring K22.2 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 Allergies sulfamethoxazole [From Bactrim] Allergy (Mild, Verified 05/26/19 19:24) hives trimethoprim [From Bactrim] Allergy (Mild, Verified 05/26/19 19:24) hives Penicillins Allergy (Verified 05/26/19 19:24) Hives Home Medications: Ambulatory Orders Medication Instructions Recorded Furosemide 40 mg PO PRN PRN 06/24/15 Levothyroxine [Synthroid] 25 mcg PO DAILY 06/24/15 Meloxicam 15 mg PO DAILY 06/24/15 Potassium Chloride 10 meq PO PRN PRN 06/24/15 Warfarin [Coumadin] 2.5 mg PO MOWEFR 06/24/15 Warfarin [Coumadin] 5 mg PO SUTUTHSA 06/24/15 glucosamine sulfate 500 mg tablet 500 mg PO BID 04/06/19 omega-3 fatty acids 1,000 mg 1,000 mg PO DAILY 04/06/19 capsule atenolol 25 mg tablet 50 mg PO BID 04/26/19 Calcium Carbonate/Vitamin D3 1 ea PO DAILY 05/09/19 [Caltrate 600 Plus D3 Tablet] Glucosam/Quinn-Msm1/C/Casey/Bosw 1 ea PO BID 05/09/19 [Osteo Bi-Flex Caplet] Omeprazole 20 mg PO DAILY 05/26/19 Surgical History: Surgical History (Last Reviewed 05/27/19 @ 00:19 by Lisa Baker DO) History of mitral valve replacement with mechanical valve (Resolved) Onset Date: 11/11/[address] [facility] 11/11/1998 History of cardioversion Onset Date: ~03/2008 Z98.890 2006, 2007 History of colonoscopy Onset Date: ~2015 Z98. History of esophageal dilatation Onset Date: ~2010 Z98. History of esophagogastroduodenoscopy (EGD) Onset Date: ~2010 Z98. History of foot surgery Z98.890 History of left heart catheterization Onset Date: 10/30/98 Z98.89 History of total hysterectomy Z90.710 Surgical History: - - Prosthetic mitral valve Lives: Spouse/ Significant Other Smoking Status: Never smoker Alcohol: None Drugs: None Review of Systems Constitutional: Denies: Anorexia, Chills, Fever, Night Sweats, Malaise, Weakness, Weight Change, Fatigue Eyes: Denies: Blurred vision, Cataracts, Conjunctivae Inflammation, Double vision, Drainage, Eyelid Inflammation, Pain, Redness, Vision Change HEENT: Denies: Difficulty Hearing, Difficulty Swallowing, Dysphasia, Ear Pain, Eye Pain, Hard of Hearing, Head Aches, Hearing Changes, Nasal bleeding, Nasal Congestion, Post Nasal Drip, Sinus Congestion, Sinus Drainage, Sore Throat, Visual Changes Cardiovascular: Denies: Chest Pain, Claudication, Chest Pressure, Chest Tightness, Edema, Heaviness, Light Headedness, Orthopnea, Palpitations, Paroxysmal Noc. Dyspnea, Syncope Respiratory: Denies: Cough, Hemoptysis, Pleuritic Pain, Shortness of Breath, Shortness of breath at rest, Shortness of breath upon exertion, Sputum production, Wheezing Gastrointestinal: Denies: Abdominal Pain, Constipation, Diarrhea, Dyspepsia, Hematemesis, Hematochezia, Nausea, Melena, Vomiting Genitourinary: Denies: Dysuria, Frequency, Hematuria, Hesitancy, Incontinence, Nocturia, Retention, Urgency Gynecological: Denies: Breast symptoms Musculoskeletal: Reports: Foot Pain, Joint Pain, Joint stiffness, Leg Pain, Muscle pain. Denies: Arm Pain, Back Pain, Hand Pain, Joint swelling, Joint Tenderness, Neck Pain, Shoulder Pain Skin: Denies: Dryness, Jaundice, Lesions, Pruritis, Rash, Skin Changes, Wounds Neurological: Reports: Confusion - resolved, Difficulty swallowing - chronic, Focal weakness - resolved, Incoordination - resolved, Numbness - resolved. Denies: Balance problems, Blurred vision, Double vision, Headaches, Tingling, Tremor, Seizures Psychiatric: Denies: Anxiety, Depression Endocrine: Denies: Change in Body Habitus, Heat/ Cold Intolerance, Polydipsia, Polyuria, Hx of Thyroiditis Hematologic/ Lymphatic: Reports: Easy Bruising, Easy Bleeding. Denies: Adenopathy, Anemia, Petechiae, Purpura VTE Information - Inpt Only VTE Present on Admission: No VTE Mechan Device Prophylaxis: SCD's VTE Pharm Prophylaxis ordered?: No Reason prophylaxis not ordered:: Drug Interaction - pt fully anticoagulated Patient Problems: Active and Suspected Problems (Last Reviewed 05/27/19 @ 00:19 by Lisa Baker DO) CVA (cerebral vascular accident) (Acute) Hypocalcemia (Acute) long-term current use of anticoagulant (Acute) History of prosthetic mitral valve (Acute) Atrial fibrillation (Acute) - Physical Exam Vitals/I&O's: Vital Signs Temp Pulse Resp BP Pulse Ox 98.1 F 74 18 146/72 H 96 05/27/19 01:55 05/27/19 01:55 05/27/19 01:55 05/27/19 01:55 05/27/19 01:55 Oxygen Delivery Method Room Air Weight: 73.8 kg Body Mass Index (BMI) 31.7 Finger Stick Blood Glucose 104 Intake and Output for Last 24 Hours 05/25/19 05/26/19 05/27/19 23:59 23:59 23:59 Intake Total 100 / 100 Balance 100 / 100 General: Alert, Oriented x3, Cooperative, No apparent distress, Well developed, Well nourished, - - non-toxic and appears well, talkative, family at bedside HEENT: Atraumatic, PERRLA, EOMI, Normocephalic, EAC Clear Oral: Moist Mucosa, No Gingival or Mucosal Lesions/ Ulcerations, - - fair dentition, no thrush Neck: Supple, No JVD, Negative Carotid Bruits, Negative Hepatojugular Reflux, No Nodes, No Nuchal Rigidity, Trachea Midline, Thyroid Normal Size and Texture Lungs: Clear to auscultation, Normal air movement, No rhonchi, No wheeze, No rales Cardiovascular: Normal S1, Normal S2, No murmurs, No Ectopic Activity, Irregular Rate, No rub noted, No Gallop, - - irreg/irreg Abdomen: Bowel Sounds Present, Soft, Non Tender, Non-Distended, No Hepato-splenomegaly, Obese, No hernias noted Extremities: No clubbing, No cyanosis, No edema, Capillary Refill Less than 3 Seconds, No Calf Tenderness Skin: No rashes, No breakdown Musculoskeletal: No Tenderness to Palpation of Joints or Extremities, No Muscle Wasting Lymphatic: No Cervical, Supraclavicular, or Inguinal Adenopathy Neurological: Cranial nerves II-XII grossly intact, Deep Tendon Reflexes 2+/4 and Symmetrical, Neuro grossly intact, Motor Exam 5/5 strength throughout Psych/Mental Status: Normal Affect, Appropriate, Alert and oriented to time, place, person, mood and affect Laboratory Results 05/26/19 19:40: POC Glucose 104 05/26/19 20:01: WBC 5.2, RBC 4.01 L, Hgb 13.3, Hct 39.1, MCV 97.5, MCH 33.2 H, MCHC 34.0, RDW Std Deviation 46.5 H, RDW Coeff of Alvarado 13.1, Plt Count 111 L, MPV 11.1, Immature Gran % (Auto) 0.200, Neut % (Auto) 48.8, Lymph % (Auto) 34.4, Treasure % (Auto) 13.5 H, Eos % (Auto) 2.7, Baso % (Auto) 0.4, Absolute Neuts (auto) 2.5, Absolute Lymphs (auto) 1.78, Nucleated RBC % 0 05/26/19 20:01: PT 36.2 H, INR 3.6 H*, APTT 53.1 H 05/26/19 20:01: Sodium 148 H, Potassium 3.0 L, Chloride 118 H, Carbon Dioxide 26.0, Anion Gap 4 L, BUN 15, Creatinine 0.66, Estim Creat Clear Calc 34.38, Est GFR (MDRD) Af Amer 111, Est GFR (MDRD) Non-Af 92, BUN/Creatinine Ratio 22.7 H, Glucose 78, Calcium 6.5 L* 05/26/19 20:05: Ionized Calcium Pending 05/26/19 21:15: Albumin 2.6 L Current Medications Acetaminophen (Tylenol) 650 mg PO Q4H PRN PRN PRN Reason: Headache/Temp>99.6F Aspirin (Aspirin, Baby) 81 mg PO DAILY@0800 [facility] Atenolol (Tenormin (Beta Leeanne)) 50 mg PO BID [facility] Atorvastatin Calcium (Lipitor) 80 mg PO QHS [facility] Furosemide (Lasix) 40 mg PO PRN PRN PRN Reason: swelling in legs Sodium Chloride () 250 mls @ 15 mls/hr IV .[id number] PRN PRN Reason: Saline Flush Sodium Chloride () 1,000 mls @ 50 mls/hr IV .Q20H [facility] Last Admin: 05/27/19 01:20 Dose: 50 mls/hr Documented by: Calcium Gluconate 4 gm/ (Dextrose) 140 mls @ 35 mls/hr IV X1 ONE Stop: 05/27/19 04:59 Last Admin: 05/27/19 01:24 Dose: 35 mls/hr Documented by: Labetalol HCl (Trandate) 10 mg IV Q10M PRN PRN Reason: MAINTAIN BP < 220/120 Stop: 05/28/19 00:30 Levothyroxine Sodium (Synthroid) 25 mcg PO DAILY@0600 [facility] Non-Formulary Medication (Potassium Chloride) 10 meq PO PRN PRN PRN Reason: takes with lasix Mrurc-3-Ohvb Ethyl Esters (Lovaza) 1 gm PO DAILY [facility] Pantoprazole Sodium (Protonix) 20 mg PO DAILY [facility] Sodium Chloride () 10 - 40 ml IV UD PRN PRN Reason: SALINE FLUSH Last Admin: 05/27/19 01:33 Dose: 10 ml Documented by: Warfarin Sodium (Coumadin (Pbkc)) 2.5 mg PO MoWeFr@1700 [facility] Warfarin Sodium (Coumadin (Pbkc)) 5 mg PO SuTuThSa@1700 [facility] Assessment/Plan All Active Problems (Last Reviewed 05/27/19 @ 00:19 by Lisa Baker DO) CVA (cerebral vascular accident) (Acute) Hypocalcemia (Acute) long-term current use of anticoagulant (Acute) History of prosthetic mitral valve (Acute) Atrial fibrillation (Acute) Preop cardiovascular exam (Acute) History of mitral valve replacement with mechanical valve (Resolved 11/11/98) L UE Numbness and Weakness -suspect TIA -?cardioembolic with being off coumadin -no tPA given NIH now 0 -continue serial NIH -ASA 81 mg daily -check lipids -check ECHO -CTA head and neck -control BP -maintain anticoagulation -PT/OT/[employer] if needed -NPO until cleared for PO diet -Consult TeleStroke for Neuro Hypocalcemia -ICa2+ ordered in ED -4 gm calcium gluconate -trend calcium Hypokalemia -pt on scheduled K--> 20mEq/day -will dose 40 mg now and recheck in am -check mag if doesn't correct H/O MVR/Chronic A-fib/HTN -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
[2019-05-27] MEDS: Levothyroxine 25 MCG TABLET PO (05:43)
[2019-05-27 06:33] LABS: Absolute Lymphocyte Count 1.47 X10^3/uL (0.83-4.51); Absolute Neutrophil Count 3.5 X10^3/uL (2.0-7.7); Basophil# 0.03 X10^3/uL; Basophil% 0.5 % (0-1); Eosinophils% 3.4 % (0-5); Hematocrit 37.1 % (37-47); Hemoglobin 12.7 g/dL (12.0-15.0); Lymphocyte # 1.47 X10^3/ul (4.0); Mean Corp Hgb Conc 34.2 g/dL (32-36); Mean Corpuscular Hgb 33.1 pg (27.0-32.0); Mean Corpuscular Volume 96.6 fL (81-99); Mean Platelet Vol. 11.6 fl (6.2-12.0); Monocyte# 0.66 X10^3/uL; Monocyte% 11.2 % (0-10); NRBC Flagged by Analyzer 0 % (0-5); Neutrophil # 3.51 X10^3/uL (2.7-7.7); Neutrophil % 59.7 % (47-70); Platelet Count 112 K/mm3 (150-450); RBC Distribution Width CV 13.2 % (11.6-14.6); RBC Distribution Width SD 46.4 fl (35.1-43.9); Red Blood Count 3.84 M/mm3 (4.2-5.4); White Blood Count 5.9 K/mm3 (4.4-11.0)
[2019-05-27 07:04] LABS: International Normalized Ratio 3.2; Prothrombin Time (Protime)PT. 33.2 SECONDS (11.7-14.9)
[2019-05-27 07:32] LABS: AST(SGOT) 22 U/L (15-37); Alanine Aminotransfer ALT/SGPT 23 U/L (13-56); Albumin, Serum 3.1 g/dL (3.2-5.0); Alkaline Phosphatase 44 U/L (45-117); Bilirubin, Direct 0.09 mg/dL (0.00-0.30); Cholesterol 199 mg/dL (200); Globulin 3.2 g/dL (2.2-4.2); High Density Lipoprotein 28 mg/dL; Protein, Total 6.3 g/dL (6.4-8.2); Triglycerides 294 mg/dL; Very Low Density Lipoprotein 59 mg/dL (5-40)
--- NOTE | 2019-05-27 08:11 | CT_ITS ---
STUDY: CT BRAIN WITHOUT CONTRAST REASON FOR EXAM: Female, 78 years old. TIA, left upper extremity weakness last night, resolved now. Hx afib. RADIATION DOSAGE (If Supplied By Facility): CTDIvol = ( 44.99 ) mGy, DLP = ( 779.24 ) mGycm TECHNIQUE: Transaxial CT imaging of the brain was performed without administration of intravenous contrast material. Individualized dose optimization techniques were used for this CT. COMPARISON: 05/26/2019 FINDINGS: Normal size ventricles and extra-axial spaces for the patient''s age. There are areas of decreased attenuation within the white matter tracts of the supratentorial brain, consistent with microvascular disease changes. There is no intracranial hemorrhage. There are no findings of an acute ischemic infarction. Normal soft tissue structures. Normal visualized paranasal sinuses. CT/Brain/Head without Contrast IMPRESSION: Chronic involutional changes of the brain. Electronically Signed: Greta Stovall MD at 11:05 EST Tel , Service support ,
--- NOTE | 2019-05-27 08:12 | PCM.PN.BLA ---
Progress Note 78-year-old female with past medical history of chronic atrial fibrillation, status post mechanical mitral valve replacement who comes in with acute onset of left-sided numbness and tingling as well as incoordination which on the evening of the admission. Patient's symptoms were apparently resolved at the time of admission. Patient had reported being off her Coumadin on May 13 and for an endoscopy that was done on May 15. She restarted her Coumadin on May 15.Her INR was 3.[address] scan of the brain was negative for acute infarct. Initial CTA of the head and neck was unremarkable. Her vitals remained stable. She was continued on aspirin and her Coumadin. 2D echo is pending. She was also found to be hypocalcemic and hypokalemic and that was replaced. Telemetry neurology stroke consult was placed. MRI of the brain recommended. Aspirin and Coumadin continued. Patient will also be seen by PT/OT/ST. STROKE Vital Signs/Narrative: Vital Signs Temp Pulse Resp BP Pulse Ox 05/27/19 07:45 96 05/27/19 07:06 60 05/27/19 05:55 98.1 F 73 17 134/66 H 95
--- NOTE | 2019-05-27 09:31 | MRI_ITS ---
STUDY: MRI CERVICAL SPINE WITHOUT CONTRAST REASON FOR EXAM: Female, 78 years old. Left hand weakness and numbness. TECHNIQUE: Standardized fat and water weighted pulse sequences were obtained in the sagittal and axial planes. COMPARISON: None FINDINGS: Normal foramen magnum and brainstem-cervical cord junction. Normal craniovertebral junction. Normal anterior atlantoaxial articulation. Normal odontoid process. Normal cervical lordosis. Normal vertebral bodies and posterior osseous elements. C2-3: Normal endplates. Normal disc height, signal and morphology. Normal central canal and intervertebral neural foramina. C3-4: Normal endplates. Normal disc height, signal and morphology. Normal central canal and intervertebral neural foramina. C4-5: Normal endplates. Normal disc height, signal and morphology. Normal central canal and intervertebral neural foramina. C5-6: Mild broad disc osteophyte complex with loss of disc height produces moderate spinal stenosis with abutment of central spinal cord. No neural foraminal stenosis. C6-7: Normal endplates. Normal disc height, signal and morphology. Normal central canal and intervertebral neural foramina. C7-T1: Normal endplates. Normal disc height, signal and morphology. Normal central canal and intervertebral neural foramina. Normal cervical cord. Normal visualized soft tissue structures. MRI/Spine Cervical (Routine) IMPRESSION: Focal degenerative disc disease at C5/C6 as described above. Electronically Signed: Jovanni Munoz MD at 9:48 EST Tel , Service support ,
--- NOTE | 2019-05-27 09:31 | MRI_ITS ---
We are attempting to reach an attending provider to discuss findings. An addendum with communication details will be sent when the communication is complete. STUDY: MRI BRAIN WITHOUT CONTRAST REASON FOR EXAM: Female, 78 years old. Stroke, left hand weakness, numbness TECHNIQUE: Standardized multiplanar fat and water weighted pulse sequences were obtained. COMPARISON: CT 05/27/2019 FINDINGS: There is mild cerebral atrophy with widening of the extra-axial spaces and ventricular dilatation. There are a limited number of small white matter hyperintensities, distributed throughout the deep white matter tracts of the cerebral hemispheres, consistent with mild chronic white matter ischemic changes. Multiple punctate hyperintensities of the cortex of the posterior right parietal lobe demonstrates restricted diffusion consistent with acute or subacute embolic infarcts. Normal T2* images of the brain without demonstrated susceptibility artifact. There is no demonstrated hemosiderin stain. Normal bilateral basal ganglia. Normal thalami. There is no extra-axial fluid accumulation. Normal flow voids within the major intracranial circulation suggesting patency by spin echo criteria. Normal sella turcica, pituitary gland, infundibular stalk, optic chiasm and hypothalamus. Normal tectal plate and pineal gland. Normal midbrain, jocelyn and medulla. Normal cerebellum. Normal basal cisterns. Normal bilateral temporal bones. Normal bilateral internal auditory canals. No demonstrated orbital abnormality, within the constraints of a routine brain study. Normal visualized paranasal sinuses. Normal calvarium and skull base. Normal visualized soft tissue structures. Normal visualized upper cervical spine. MRI/Brain without Contrast IMPRESSION: Acute/subacute embolic infarcts of the posterior right parietal lobe in the right middle cerebral artery territory. Electronically Signed: Jovanni Munoz MD at 9:47 EST Tel , Service support ,
[2019-05-27] MEDS: Aspirin 81 MG TAB.CHEW PO (09:36)
[2019-05-27] MEDS: Atenolol 50 MG Tablet PO (09:36)
[2019-05-27] MEDS: Pantoprazole Sodium 20 MG Tablet PO (09:36)
[2019-05-27] MEDS: Omega-3 Acid Ethyl Esters 1 GM Capsule PO (09:36)
[2019-05-27] MEDS: Calcium Carb/Vitamin D 1 TABLET Tablet PO (09:41)
[2019-05-27 10:13] LABS: Anion Gap 5 (5-15); BUN 15 mg/dL (7-18); BUN/Creat Ratio 18.5 RATIO (10-20); Calcium,Total 9.7 mg/dL (8.5-10.1); Chloride 112 mmol/L (98-107); Creatinine, Serum 0.81 mg/dL (0.55-1.02); EST Glomerular Filtration Rate 73 mL/min (>60); Est Glom Filt Rate - Afr Amer 88 mL/min (>60); Estimated Creatinine Clearance 42.44 ml/min; Glucose 110 mg/dL (74-106); Potassium 4.3 mmol/L (3.5-5.1); Sodium Level 144 mmol/L (136-145)
[2019-05-27] MEDS: Atorvastatin Calcium 40 MG Tablet PO (20:07)
[2019-05-28] VITALS (7 sets, daily range): BP systolic 120–146; BP diastolic 62–93; PULSE 64–89; RESP 16–18; TEMP 36.3–36.6; O2SAT 93–97; BMI 31.7
[2019-05-28] MEDS: Levothyroxine 25 MCG TABLET PO (06:00)
[2019-05-28 06:17] LABS: Absolute Lymphocyte Count 1.67 X10^3/uL (0.83-4.51); Absolute Neutrophil Count 2.5 X10^3/uL (2.0-7.7); Basophil# 0.03 X10^3/uL; Basophil% 0.6 % (0-1); Eosinophil# 0.19 X10^3/uL; Eosinophils% 3.7 % (0-5); Hematocrit 37.8 % (37-47); Hemoglobin 12.9 g/dL (12.0-15.0); Lymphocyte # 1.67 X10^3/ul (4.0); Lymphocyte % 32.9 % (19-41); Mean Corp Hgb Conc 34.1 g/dL (32-36); Mean Corpuscular Hgb 33.1 pg (27.0-32.0); Mean Corpuscular Volume 96.9 fL (81-99); Mean Platelet Vol. 11.9 fl (6.2-12.0); Monocyte# 0.66 X10^3/uL; NRBC Flagged by Analyzer 0 % (0-5); Neutrophil % 49.4 % (47-70); Platelet Count 122 K/mm3 (150-450); RBC Distribution Width CV 13.2 % (11.6-14.6); RBC Distribution Width SD 46.7 fl (35.1-43.9); White Blood Count 5.1 K/mm3 (4.4-11.0)
[2019-05-28 06:23] LABS: International Normalized Ratio 2.8; Prothrombin Time (Protime)PT. 29.9 SECONDS (11.7-14.9)
[2019-05-28 06:31] LABS: AST(SGOT) 25 U/L (15-37); Alanine Aminotransfer ALT/SGPT 25 U/L (13-56); Albumin, Serum 3.2 g/dL (3.2-5.0); Alkaline Phosphatase 40 U/L (45-117); Anion Gap 3 (5-15); BUN 13 mg/dL (7-18); BUN/Creat Ratio 15.8 RATIO (10-20); Calcium,Total 8.5 mg/dL (8.5-10.1); Chloride 108 mmol/L (98-107); Creatinine, Serum 0.82 mg/dL (0.55-1.02); EST Glomerular Filtration Rate 72 mL/min (>60); Est Glom Filt Rate - Afr Amer 87 mL/min (>60); Estimated Creatinine Clearance 41.92 ml/min; Globulin 3.3 g/dL (2.2-4.2); Glucose 86 mg/dL (74-106); Potassium 3.9 mmol/L (3.5-5.1); Protein, Total 6.5 g/dL (6.4-8.2); Sodium Level 142 mmol/L (136-145)
[2019-05-28] MEDS: Pantoprazole Sodium 20 MG Tablet PO (09:30)
[2019-05-28] MEDS: Calcium Carb/Vitamin D 1 TABLET Tablet PO (09:31)
[2019-05-28] MEDS: Atenolol 50 MG Tablet PO (09:31)
[2019-05-28] MEDS: Omega-3 Acid Ethyl Esters 1 GM Capsule PO (09:31)
[2019-05-28] MEDS: Aspirin 81 MG TAB.CHEW PO (09:31)
--- NOTE | 2019-05-28 10:55 | CASEMGMT ---
Social Work Consult: PHQ-9 assessment due to diagnosis of stroke. Met with patient and patient spouse, Jonny in room. Introduced self as well as social psychologist role. Explained purpose and reason for PHQ-9 assessment. Patient agreeable. PHQ-9 completed with score of 08/09. This social psychologist inquiring if patient as any concerns with returning to the community. Patient stating to have limited transportation. This social psychologist providing patient with transportation resources. Patient stating to have a ride home from the hospital at time of discharge. Active support and listening provided. Mohini ROBERT, MADAY
--- NOTE | 2019-05-28 11:04 | CASEMGMT ---
RN CM Assessment Introduced role of RN CM to patient and patient at bedside.? Patient is alert, oriented and able?to participate in RN CM Assessment. ?Care providers, pharmacy, and demographics verified. Presentation: Acute onset of Left hand numbness and uncoordination when trying to open jelly jar, Per Dtr- responses delayed a bit. Admit Dx: Stroke/Tia Re-Admit: No Barriers/Issues: None PCP: Eric Lorenzo Specialists: Katrin- at [facility] (cannot recall name), Has seen Dr Calzada outpatient here. [facility]erred [facility]acy: [facility] Insurance: [employer] Benefit:?Yes ?LNOK: Jonny Vargas LW/HPOA: States has both, aware not on file with [facility] and if brought in can place a copy on file, HPOA- Jonny Vargas Living Arrangements:? Lives with her in a H, no steps to enter ADL?s: Independent with ambulation and ADLs Transportation: Private Pay drivers, denies transportation issues DME: None HHC: None SNF: None Goal: Home and does not think will have any needs. Aware PT/OT still needs to evaluate here, discussed if recommending additional therapy HHC PT vs Outpatient PT. In Network HHC list left at bedside. Patient states she does not think will need anything but states normally Independent and has been walking some in the hospital room but still a little weaker than normal. Possible Outpatient PT. Denies any issues, concerns, or questions with DC planning at this time. Aware CM remains available for any emerging needs. DC PLAN: Home with possible Outpatient PT. JUSTO Gonzalez
--- NOTE | 2019-05-28 11:29 | DCINST_ITS ---
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) History of prosthetic mitral valve (Acute) Atrial fibrillation (Acute) You will use the following diet at home:: Cardiac Your food should be the consistency of: Regular Your liquids should be the consistency of: Regular/Thin Discharge Activity: Return to Normal Activity Allergies/Adverse Reactions: Allergies sulfamethoxazole [From Bactrim] Allergy (Mild, Verified 05/26/19 19:24) hives trimethoprim [From Bactrim] Allergy (Mild, Verified 05/26/19 19:24) hives Penicillins Allergy (Verified 05/26/19 19:24) Hives Medications to take at Discharge Furosemide 40 mg PO DAILY PRN 06/24/15 Levothyroxine [Synthroid] 25 mcg PO DAILY 06/24/15 Potassium Chloride 10 meq PO DAILY PRN 06/24/15 Warfarin [Coumadin] 2.5 mg PO MOWEFR 06/24/15 Warfarin [Coumadin] 5 mg PO SUTUTHSA 06/24/15 glucosamine sulfate 500 mg tablet 500 mg PO BID 04/06/19 omega-3 fatty acids 1,000 mg capsule 1,000 mg PO DAILY 04/06/19 atenolol 25 mg tablet 50 mg PO BID 04/26/19 Calcium Carbonate/Vitamin D3 [Caltrate 600 Plus D3 Tablet] 1 ea PO DAILY 05/09/19 Glucosam/Quinn-Msm1/C/Casey/Bosw [Osteo Bi-Flex Caplet] 1 ea PO BID 05/09/19 Omeprazole 20 mg PO DAILY 05/26/19 Atorvastatin Calcium [Lipitor] 40 mg PO QHS #30 tab 05/28/19 The following prescriptions were given: Atorvastatin Calcium [Lipitor] 40 mg PO QHS #30 tab Transmission Status: Pending to [id number] Primary Care Physician: Yassine Lorenzo MD [Primary Care Provider] - Please follow up with your Primary Care Physician in: 1-2 weeks Test Results: Test results from this visit will be discussed in further detail at your follow- up appointment, if applicable. Please Follow Up With: Yassine Lorenzo MD Please Follow Up With: Rhys Calzada MD Proposed Discharge Date: 05/28/19
--- NOTE | 2019-05-28 12:09 | CASEMGMT ---
Therapy is not recommending any further therapy for pt at this time and pt's NIH is 0 at this time. Per Laura GAYLE CM, pt stated no need for any further discharge planning at this time. Lupillo GAYLE CM
--- NOTE | 2019-05-28 14:52 | DS.PCM_ITS ---
Discharge Date and Diagnosis - Problem List Patient Problems: Active and Suspected Problems (Last Reviewed 05/27/19 @ 00:19 by Lisa Baker DO) CVA (cerebral vascular accident) (Acute) Hypocalcemia (Acute) [facility] current use of anticoagulant (Acute) History of prosthetic mitral valve (Acute) Atrial fibrillation (Acute) Date of Admission: 05/26/19 Date of Discharge: 05/28/19 - Primary Discharge Diagnosis Active and Suspected Problems (Last Reviewed 05/27/19 @ 00:19 by Lisa Baker DO) Acute/subacute infarct, embolic, posterior right parietal lobe, Right MCA Mechanical mitral valve Afib HTN GERD Hypothyroidism - Secondary Discharge Diagnosis Chronic Problems (Last Reviewed 05/27/19 @ 00:19 by Lisa Baker DO) Chronic atrial fibrillation (Chronic) Rheumatic mitral stenosis (Chronic) #[address] [facility] [place] Dysphagia (Chronic) Hospital Course and Treatment Imaging Results: 2D Echo: Interpretation Summary Normal LV size. Mild concentric left ventricular hypertrophy. The left atrium is moderately enlarged. Left ventricular systolic function is lower limits of normal. The estimated ejection fraction is 50 %. Stable appearing mechanical mitral valve apparatus. Mean transmitral valve gradient 3.5 mmHg. MRI/Spine Cervical (Routine) IMPRESSION: Focal degenerative disc disease at C5/C6 as described above. MRI/Brain without Contrast IMPRESSION: Acute/subacute embolic infarcts of the posterior right parietal lobe in the right middle cerebral artery territory. N.B. : The above information has been verbally conveyed by Jovanni Munoz MD to Troy Soares;[phone], [place], on 05/28/2019 09:51:53 (ET). CT/Brain/Head without Contrast IMPRESSION: Chronic involutional changes of the brain. CT/CTA Head AND Neck W/ Contrast IMPRESSION: No CTA evidence of significant intracranial arterial pathology. No CTA evidence of significant arterial pathology in the neck. NASCET criteria was used. IMPRESSION: No CT evidence of acute infarct or hemorrhage. If there is clinical concern for hyperacute ischemia that is not evident by CT, MRI should be considered if possible. N.B. : The above information has been verbally conveyed by Aramis aKiser MD to Raghu Hunt MD, on 05/26/2019 20:03:45 (ET). Consults: Operations: None Procedures: 2-D Echocardiogram Summary of Care Provided: Hospital Course: The patient is a 78 year old F with pmhx of mechanical mitral valve, atrial fibrillation, on coumadin, prior stroke, htn, who presented to the ER with c/o transient sudden onset of left upper extremity weakness and numbness. She was working in the kitchen and suddenyl realized she could not bead picker anything with her left hand. She would drop anything she tried to bead picker, and it felt completely numb. She had recently been off of her Coumadin for an EGD. In the ER her INR was therapeutic. Her symptoms had completely resolved. CT brain was negative. She was admitted with concern for stroke. Tele neuro SOC was consult ed. They felt that this was likely a TIA. They recommended MRI brain and MRI c spine, and 40 mg of lipitor daily, and that she did not need the addition of aspirin or plavix with her warfarin. She had acute/subacute embolic infarcts in the posterior right parietal lobe, right MCA. MRI C spine had some degenerative changes. Fortunately the patients symptoms did not recur, and remained completely resolved. 2D Echo was obtained with no thrombus, no ASD. She was discharged home with outpatient PT and OT. 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 This patient was seen by Troy Soares PA-C under the supervision of Dr. Acosta. [] Patient Problems: Active and Suspected Problems (Last Reviewed 05/27/19 @ 00:19 by Lisa Baker DO) CVA (cerebral vascular accident) (Acute) Hypocalcemia (Acute) [facility] current use of anticoagulant (Acute) History of prosthetic mitral valve (Acute) Atrial fibrillation (Acute) - Physical Exam Vitals/I&O's: Vital Signs Temp Pulse Resp BP Pulse Ox 97.7 F L 64 16 146/67 H 96 05/28/19 13:21 05/28/19 13:21 05/28/19 13:21 05/28/19 13:21 05/28/19 13:21 Oxygen Delivery Method Room Air Weight: 162 lb 11.218 oz Body Mass Index (BMI) 31.7 Finger Stick Blood Glucose 104 Intake and Output for Last 24 Hours 05/26/19 05/27/19 05/28/19 23:59 23:59 23:59 Intake Total 100 / 100 3083.33 / 3323.33 600 / 600 Balance 100 / 100 3083.33 / 3323.33 600 / 600 General: Alert, Oriented x3, Cooperative HEENT: Atraumatic, PERRLA, EOMI, Normocephalic Neck: Supple, No JVD, Negative Carotid Bruits Lungs: Clear to auscultation, Normal air movement Cardiovascular: Regular rate, No murmurs Abdomen: Bowel Sounds Present, Soft, Non Tender Extremities: No edema, Capillary Refill Less than 3 Seconds Skin: No rashes, No breakdown Musculoskeletal: No Tenderness to Palpation of Joints or Extremities Neurological: Cranial nerves II-XII grossly intact Psych/Mental Status: Normal Affect, Appropriate, Alert and oriented to time, place, person, mood and affect Laboratory Results 05/28/19 05:15: Sodium 142, Potassium 3.9, Chloride 108 H, Carbon Dioxide 31.0, Anion Gap 3 L, BUN 13, Creatinine 0.82, Estim Creat Clear Calc 41.92, Est GFR (MDRD) Af Amer 87, Est GFR (MDRD) Non-Af 72, BUN/Creatinine Ratio 15.8, Glucose 86, Calcium 8.5, Total Bilirubin 0.80, AST 25, ALT 25, Alkaline Phosphatase 40 L , Total Protein 6.5, Albumin 3.2, Globulin 3.3, Albumin/Globulin Ratio 1.0 05/28/19 05:15: WBC 5.1, RBC 3.90 L, Hgb 12.9, Hct 37.8, MCV 96.9, MCH 33.1 H, MCHC 34.1, RDW Std Deviation 46.7 H, RDW Coeff of Alvarado 13.2, Plt Count 122 L, MPV 11.9, Immature Gran % (Auto) 0.400, Neut % (Auto) 49.4, Lymph % (Auto) 32.9, [place] % (Auto) 13.0 H, Eos % (Auto) 3.7, Baso % (Auto) 0.6, Absolute Neuts (auto) 2.5, Absolute Lymphs (auto) 1.67, Nucleated RBC % 0 05/28/19 05:15: PT 29.9 H, INR 2.8 Current Medications Acetaminophen (Tylenol) 650 mg PO Q4H PRN PRN PRN Reason: Headache/Temp>99.6F Aspirin (Aspirin, Baby) 81 mg PO DAILY@0800 [facility] Last Admin: 05/28/19 09:31 Dose: 81 mg Documented by: Atenolol (Tenormin (Beta Leeanne)) 50 mg PO BID [facility] Last Admin: 05/28/19 09:31 Dose: 50 mg Documented by: Atorvastatin Calcium (Lipitor) 40 mg PO QHS [facility] Last Admin: 05/27/19 20:07 Dose: 40 mg Documented by: Calcium/Vitamin D (Os-Jose 500mg + D) 1 tablet PO DAILY [facility] Last Admin: 05/28/19 09:31 Dose: 1 tablet Documented by: Furosemide (Lasix) 40 mg PO DAILY PRN PRN PRN Reason: swelling in legs Sodium Chloride () 250 mls @ 15 mls/hr IV .[id number] PRN PRN Reason: Saline Flush Levothyroxine Sodium (Synthroid) 25 mcg PO DAILY@0600 [facility] Last Admin: 05/28/19 06:00 Dose: 25 mcg Documented by: Ewaaj-0-Yynf Ethyl Esters (Lovaza) 1 gm PO DAILY [facility] Last Admin: 05/28/19 09:31 Dose: 1 gm Documented by: Pantoprazole Sodium (Protonix) 20 mg PO DAILY [facility] Last Admin: 05/28/19 09:30 Dose: 20 mg Documented by: Potassium Chloride (K-Dur) 10 meq PO DAILY PRN PRN PRN Reason: if Lasix is given Sodium Chloride () 10 - 40 ml IV UD PRN PRN Reason: SALINE FLUSH Last Admin: 05/27/19 01:33 Dose: 10 ml Documented by: Warfarin Sodium (Coumadin (Pbkc)) 2.5 mg PO MoWeFr@1700 [facility] Warfarin Sodium (Coumadin (Pbkc)) 5 mg PO SuTuThSa@1700 [facility] Last Admin: 05/27/19 16:51 Dose: 5 mg Documented by: Discharge Diet: Low fat/ Low Cholesterol, 2000 mg Sodium Diet Discharge Activity: Return to Normal Activity Home Medications: Medications to take at Discharge Furosemide 40 mg PO DAILY PRN 06/24/15 Levothyroxine [Synthroid] 25 mcg PO DAILY 06/24/15 Potassium Chloride 10 meq PO DAILY PRN 06/24/15 Warfarin [Coumadin] 2.5 mg PO MOWEFR 06/24/15 Warfarin [Coumadin] 5 mg PO SUTUTHSA 06/24/15 glucosamine sulfate 500 mg tablet 500 mg PO BID 04/06/19 omega-3 fatty acids 1,000 mg capsule 1,000 mg PO DAILY 04/06/19 atenolol 25 mg tablet 50 mg PO BID 04/26/19 Calcium Carbonate/Vitamin D3 [Caltrate 600 Plus D3 Tablet] 1 ea PO DAILY 05/09/19 Glucosam/Quinn-Msm1/C/Casey/Bosw [Osteo Bi-Flex Caplet] 1 ea PO BID 05/09/19 Omeprazole 20 mg PO DAILY 05/26/19 Atorvastatin Calcium [Lipitor] 40 mg PO QHS #30 tab 05/28/19 Following Prescrptions Were Given to Patient: Atorvastatin Calcium [Lipitor] 40 mg PO QHS #30 tab Transmission Status: Received by [facility] Primary Care Physician: Yassine Lorenzo MD [Primary Care Provider] - Please follow up with your Primary Care Physician in: 1-2 weeks Please Follow Up With: Yassine Lorenzo MD Please Follow Up With: Rhys Calzada MD Disposition: Home Minutes spent on discharge:: 35 Patient Condition:: Stable Medical Necessity - Tobacco Use Smoking Status: Never smoker Meaningful Use Info Meaningful Use Diagnoses (Choose all that apply): Ischemic CVA - CVA Therapy Assessed for PT,OT and/or ST?: Yes - Ischemic Stroke Antithrombotic order at d/c?: No Reason antithrombotic not ordered: Treatment not Indicated Dx of Atrial fib/flutter?: Yes Anticoagulant at discharge?: Yes Statins at discharge?: Yes Primary Dx Acute Ischemic CVA?: Yes IV tPA ordered during stay?: No Reason IV t-PA not ordered: Procedure not Indicated
--- NOTE | 2019-05-29 14:09 | PCA ---
Patient called in was given the date 05/22/19 for follow up apt with [facility], looked and notified her of correct apt of 06/22/19 at 10am.
--- NOTE | 2019-05-29 15:33 | CASEMGMT ---
IRWIN CONTRERAS Discharge Follow-up Phone Call: TEDDarlin: Marleny Strata: 3 Call Date: 05/29/19 Discharge Date: 05/28/19 Time of Call: 1533 Duration: 5 min Admitting Diagnosis: CVA/TIA IRWIN CONTRERAS completed follow-up phone call after recent hospitalization. Patient states that she is doing pretty well. Patient had no questions regarding discharge instructions. Patient was able to fill prescriptions without any issues. Patient has follow-up appts scheduled. No further needs or concerns at this time.
== END 2019-05-28 15:15 | disposition home or self-care (01) | DRG 65 ==
LOC: ED 21:15 → PCU 21:27
PROVIDERS: Internal Medicine; Admitting Provider Internal Medicine; Emergency Provider Emergency Medicine; Family Provider Family Medicine; PCP Family Medicine; Referring Provider Internal Medicine; Visit Provider Internal Medicine
DX: I63.411 Cerebral infarction due to embolism of right middle cerebral artery (principal); I48.20 Chronic atrial fibrillation, unspecified; E83.51 Hypocalcemia; E87.6 Hypokalemia; I10 Essential (primary) hypertension; E03.9 Hypothyroidism, unspecified; K21.9 Gastro-esophageal reflux disease without esophagitis; G83.24 Monoplegia of upper limb affecting left nondominant side; R20.0 Anesthesia of skin; Z95.2 Presence of prosthetic heart valve; Z79.01 Long term (current) use of anticoagulants; R13.10 Dysphagia, unspecified
CPT/HCPCS: 36415; 70450; 70496; 70498; 70551; 72141; 80048; 80053; 80061; 80076; 82040; 82330; 82962; 85025; 85610; 85730; 92523; 93005; 93306; 94762; 97161; 97165; 97802; 99285; J7030; Q9967; A4216; J0610

== ENCOUNTER 2020-12-30 08:38 | Day surgery (SDC) | payer MEDICARE, SELFPAY ==
[2020-12-17 13:47] VITALS: BMI 31.2
[2020-12-30] VITALS (7 sets, daily range): BP systolic 104–159; BP diastolic 55–75; PULSE 71–81; RESP 16–18; TEMP 36.1–36.6; O2SAT 96–100; BMI 29.6
--- NOTE | 2020-12-30 | GASB_PTH ---
PATIENT: OVIDIO IBARRA LOC: EN U#:[id number] AGE/SX: 80/F ROOM: RE12/30/[address]: Dr. Atul Cagle MD : 1940 BED: DIS: 12/30/2020 SPEC #: [id number] RECD: 12/30/20 13:09 STATUS: RADAMES JUAQUIN #: [id number] RAYNA: 12/30/20 00:[address]: Atul Cagle DEPT: SURGICAL PATHOLOGY RECD BY: Misael Arevalo ENTERED: 12/30/20 13:10 SP TYPE: Gastric Bx OTHR DR: Dr. Yassine Lorenzo MD Tissues: A - Gastric mucous membrane B - Esophageal mucous membrane Procedures: Special Stain Group II Surgery Specimen Level IV Alcian Blue/PAS (control) HEADER OPERATION: Colonoscopy, EGD ([facility]) PRE-OP DIAGNOSIS: Positive Cologuard TISSUE SUBMITTED: A ? Antrum, H. pylori and path, B ? Distal esophagus MICROSCOPIC DIAGNOSIS A. Gastric antrum, biopsy: Chronic gastritis. See comment B. Distal esophagus, biopsy: Gastroesophageal junctional mucosa with chronic inflammation. No evidence of goblet cell metaplasia. See comment. AM:romeo 12/31/2020 COMMENT A. The results of immunohistochemistry for Helicobacter pylori will be reported separately ([id number]). B. Alcian blue/PAS stain with matched control is used in the evaluation of the specimen. MICROSCOPIC DESCRIPTION Slides are reviewed. GROSS DESCRIPTION A - Received in fixative is one container labeled with the patient's name and designated antrum. The specimen consists of one irregular fragment of light jimenez soft tissue that measures 0.4 x 0.4 x 0.1 cm. The specimen is totally submitted in one cassette. B - Received in fixative is one container labeled with the patient's name and designated distal esophagus. The specimen consists of one irregular fragment of light jimenez soft tissue that measures 0.4 x 0.2 x 0.1 cm. The specimen is totally submitted in one cassette. / SJ:romeo 12/30/20 TC:5 CPT: 94688 x2, 75466
[2020-12-30 09:00] LABS: Prothrombin Time Fingerstick 23.2 SEC (11.9-14.4)
[2020-12-30] MEDS: Lactated Ringers 1,000 ML 100 ML IV ×2 (09:05→10:59)
--- NOTE | 2020-12-30 09:05 | PCM.HP.BLA ---
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: No Is patient in pain?: No Allergies sulfamethoxazole [From Bactrim] Allergy (Mild, Verified 12/17/20 13:45) hives trimethoprim [From Bactrim] Allergy (Mild, Verified 12/17/20 13:45) hives Penicillins Allergy (Verified 12/17/20 13:45) Hives Medications furosemide 40 mg PO DAILY PRN 06/24/15 [History Confirmed 12/17/20] levothyroxine 25 mcg PO DAILY 06/24/15 [History Confirmed 12/17/20] potassium chloride 10 meq PO DAILY PRN 06/24/15 [History Confirmed 12/17/20] warfarin 2.5 mg PO MOWEFR 06/24/15 [History Confirmed 12/17/20] warfarin 5 mg PO SUTUTHSA 06/24/15 [History Confirmed 12/17/20] atenolol 25 mg tablet 50 mg PO BID 04/26/19 [History Confirmed 12/17/20] calcium carbonate-vitamin D3 1 ea PO DAILY 05/09/19 [History Confirmed 12/17/20] omeprazole 20 mg PO DAILY 05/26/19 [History Confirmed 12/17/20] B-complex with vitamin C 1 tablet PO DAILY 09/08/20 [History Confirmed 12/17/20] atorvastatin 40 mg tablet 20 mg PO QHS tablet 09/08/20 [History Confirmed 12/17/20] calcium carbonate 600 mg(1,500 mg)-vitamin D3 800 unit chewable tablet 1 tablet PO DAILY 09/08/20 [History Confirmed 12/17/20] cholecalciferol (vitamin D3) 125 mcg (5,000 unit) tablet 125 mcg PO DAILY 09/08/20 [History Confirmed 12/17/20] glucosamine-chondroitin 250 mg-200 mg tablet 2 tablet PO QPC 09/08/20 [History Confirmed 12/17/20] multivit with azmxxpoa-tpsm-JT-lutein 8 mg iron-400 mcg-300 mcg tablet 1 tablet PO DAILY 09/08/20 [History Confirmed 12/17/20] turmeric root extract 500 mg capsule 500 mg PO BID 09/08/20 [History Confirmed 12/17/20] enoxaparin 40 mg/0.4 mL subcutaneous syringe 40 mg SUBCUT Q12H 3 Days #2.4 ml 12/17/20 [Rx Confirmed 12/17/20] [facility] Medical History (Updated 12/17/20 @ 14:33 by Chasidy HENRY, PADerickC) CVA (cerebral vascular accident) (05/2019) Diverticulosis Dysphagia Family history of malignant neoplasm of colon in father GERD (gastroesophageal reflux disease) Hiatal hernia History of colon polyps History of colonic polyps Hyperlipidemia Hypocalcemia Hypothyroidism Longstanding persistent atrial fibrillation Obesity Osteoarthritis Polio Positive colorectal cancer screening using Cologuard test Rheumatic mitral stenosis Schatzki's ring Severe esophageal dysplasia Surgical History History of cardioversion (~03/2008) History of colonoscopy (~2015) History of esophageal dilatation (~2010) History of esophagogastroduodenoscopy (EGD) (~2010) History of foot surgery History of left heart catheterization (10/30/98) History of mitral valve replacement with mechanical valve (11/11/98) History of total hysterectomy Family History Brother Heart disease Father Colon cancer Social History Smoking Status: Never smoker HPI HPI HPI: OVIDIO IBARRA, is a 80 F who presents to the office today for positive Cologuard. Patient was evaluated back in August by Dr. Cagle for screening colonoscopy. Patient notes a family history of colon cancer in her father in his 80's. Patient notes occasional bright red rectal bleeding and constipation. She also notes a history of polyps. Her most recent colonoscopy was in [address] Cagle. She has also had upper scopes with dilatation of a Schatzki's ring. She has been on omeprazole. She denies any dysphagia. Patient is maintained on Coumadin for A fib. 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 Previously, she has held her Coumadin and was not bridged and ended up having a CVA. She has fortunately not had any residual deficits due to her CVA. It was recommended by Dr. Cagle at the last appointment for the patient to pursue a Cologuard screening due to the risk/benefit ratio. The test returned positive. Patient's previous history per Dr. Cagle: OVIDIO IBARRA, is a 79 F who presents to the office today for surgical consultation regarding a surveillance colonoscopy. She has a family history with her father with colon cancer she thinks when he was in his 80s. She herself has had previous colon polyps. Now the most recent colonoscopy that I performed for her was June 30, 2015. Focal hyperplastic change of the distal sigmoid identified. At that point because of her prosthetic aortic valve and atrial fibrillation she was bridged with Lovenox. A more recent procedure May 15, 2019 she had an upper endoscopy because of esophageal dysphagia and have dilatation of a Schatzki's ring. Coumadin was held 2 days. This was under the direction of Dr. Rhys valentino a. The patient apparently then had a CVA with left upper extremity numbness. Fortunately she has not had any residual deficit. She was very disappointed however as by report from her she was instructed not to take the Lovenox bridging by cardiology. She currently denies any abdominal symptoms. She does have some hemorrhoid complaints. No abdominal pain no weight loss. ROS General General: No weight change, appetite, fatigue, colon cancer, breast cancer or weakness HEENT HEENT: Yes eye surgery; No difficulty swallowing, eye injury, swollen glands or hoarseness Endo Endocrine: No thyroid disease, diabetes mellitus, thyroid cancer, Hair loss, heat intolerance or cold intolerance Skin Skin: No rash or changing moles Musc Musculoskeletal: Yes arthritis; No back problems, rheumatoid arthritis, gout or joint pain Cardio Cardiovascular: Yes atrial fibrillation; No murmur, pacemaker, heart disease, high blood pressure, heart attack, heart stent, palpitations, shortness of breat with exertion or chest pain Psych Psychiatric: No depression, anxiety or hearing voices Resp Respiratory: No shortness of breath, No sleep apnea, No cough, No COPD, No asthma, No emphysema and No wheezing Gastro Gastrointestinal: No abdominal pain, No nausea or vomiting, No diarrhea, No constipation, No blood in stool, Yes acid reflux, Yes hemorrhoids, No ulcers, No gallbladder problem and No black,tarry stools Trey Hematologic: Yes blood thinners, No blood disorders, No bleeding, No anemia and No blood clots Neuro Neurologic: No weakness Exam Const General: cooperative, healthy appearing, comfortable and no acute distress [facility] Head: normal to inspection Eyes General: appearance normal, both eyes and all related structures Neck Neck: normal visual inspection Neck mass: No Resp Effort & Inspection: normal respiratory effort Auscultation: clear to auscultation bilaterally Cardio Rate: regular rate Rhythm: regular rhythm GI Inspection: normal to inspection Palpation: soft Auscultation: normal bowel sounds Skin General: no rashes or lesions noted Neuro General: no focal motor deficits and CN's II-XI intact bilaterally Extrem General: normal to inspection Psych Appearance: grossly normal Affect: normal affect Assessment and Plan Assessment and Plan (1) Positive colorectal cancer screening using Cologuard test: Status: Acute Plan - Chasidy HENRY, PADerickC: Dr. Cagle will plan to perform an upper and lower endoscopy with possible biopsies and possible dilatation of the esophagus. Procedure details, risks and benefits have been discussed. Patient has had the opportunity to ask and have questions answered. Patient verbally understands and agrees with the plan. She will hold her Coumadin for 2 days prior to the procedure on 12/28. She will be bridged with Lovenox 40 mg twice daily for 3 days starting on 12/29, 12/30 and 12/31. She will restart her Coumadin the night of the procedure, 12/30. These instructions were written out for the patient and explained. Patient denies any further questions. Plan Details Other Medications: New: enoxaparin (Lovenox) 40 mg (0.4 mL) subcut Q12H 3 days 2.4 mL 0RF Other Orders: Orders: Colonoscopy Today EGD Today Coding Level of Care Code Off vis,est,level 3 Diagnoses Positive colorectal cancer screening using Cologuard test R19.5 I have re-examined the patient. There are no clinical changes since date of exam.
--- NOTE | 2020-12-30 09:45 | IMM_PTH ---
PATIENT: OVIDIO IBARRA LOC: EN U#:[id number] AGE/SX: 80/F ROOM: RE12/30/[address]: Dr. Atul Cagle MD : 1940 BED: DIS: 12/30/2020 SPEC #: [id number] RECD: 12/30/20 13:15 STATUS: RADAMES REBryson #: [id number] RAYNA: 12/30/20 09:[address]: Atul Cagle DEPT: IMMUNOHISTOCHEMISTRY RECD BY: Siobhan Jeter ENTERED: 12/30/20 13:15 SP TYPE: IMMUNO OTHR DR: Dr. Yassine Lorenzo MD Tissues: A - Stomach, NOS Procedures: H Pylori (initial) PHYSICIAN & INSTITUTION [place] [address] SPECIMEN INFORMATION: Tissue Source: A - Antrum Clinical Info: Positive Cologuard Specimen Number: [id number] CPT code: 86817 METHODOLOGY: Deparaffinized sections of prefer/formalin-fixed tissue or PAP/DQ stained slides are incubated with monoclonal/polyclonal antibodies/oligonucleotide probes. Localization is made via biotin free immunoperoxidase method. Appropriate controls are performed and reacted as expected. Results on target cell population are indicated in the following table: RESULTS: ANTIBODY / CLONE RESULT Block A H Pylori (polyclonal) negative These tests were developed and their performance characteristics determined by [facility]. They may not have been cleared or approved by the U.S. Food and Drug Administration. The FDA has determined that such clearance or approval is not necessary. INTERPRETATION: A. Antrum biopsy: Negative for Helicobacter pylori organisms. AM:romeo 12/31/2020
--- NOTE | 2020-12-30 10:40 | OP.EGD_ITS ---
Patient Name: Gisell Vargas Procedure Date: 12/30/2020 10:00 AM Date of : 1940 Age: 80 Procedure: Upper GI endoscopy Indications: Dysphagia Providers: Atul Cagle MD Referring MD: Yassine Lorenzo Medicines: See the Anesthesia note for documentation of the administered medications Complications: No immediate complications. Procedure: Pre-Anesthesia Assessment: - Prior to the procedure, a History and Physical was performed, and patient medications and allergies were reviewed. The patient's tolerance of previous anesthesia was also reviewed. The risks and benefits of the procedure and the sedation options and risks were discussed with the patient. All questions were answered, and informed consent was obtained. Prior Anticoagulants: The patient has taken Coumadin (warfarin), last dose was 2 days prior to procedure. ASA Grade Assessment: III - A patient with severe systemic disease. After reviewing the risks and benefits, the patient was deemed in satisfactory condition to undergo the procedure. After obtaining informed consent, the endoscope was passed under direct vision. Throughout the procedure, the patient's blood pressure, pulse, and oxygen saturations were monitored continuously. The gastroscope was introduced through the mouth, and advanced to the second part of duodenum. The upper GI endoscopy was accomplished without difficulty. The patient tolerated the procedure well. Scope In: 10:07:18 AM Scope Out: 10:16:08 AM Total Procedure Duration Time 0 hours 8 minutes 50 seconds Findings: LA Grade A (one or more mucosal breaks less than 5 mm, not extending between tops of 2 mucosal folds) esophagitis with no bleeding was found 39 cm from the incisors. Biopsies were taken with a cold forceps for histology. A mild Schatzki ring was found at the gastroesophageal junction. A TTS dilator was passed through the scope. Dilation with an 18-19-20 mm balloon dilator was performed to 20 mm. The dilation site was examined following endoscope reinsertion and showed no change. Estimated blood loss: none. A medium-sized hiatal hernia was present. Diffuse mildly erythematous mucosa without bleeding was found in the gastric antrum. Biopsies were taken with a cold forceps for histology. The examined duodenum was normal. Impression: - LA Grade A reflux esophagitis. Biopsied. - Mild Schatzki ring. Dilated. No significant change at 20mm dilatation - Medium-sized hiatal hernia. - Erythematous mucosa in the antrum. Biopsied. - Normal examined duodenum. Recommendation: - Discharge patient to home. - Resume previous diet. - Continue present medications. - Telephone my office for pathology results in 1 week. Procedure Code(s): --- Professional --- 76672, Esophagogastroduodenoscopy, flexible, transoral; with transendoscopic balloon dilation of esophagus (less than 30 mm diameter) Diagnosis Code(s): --- Professional --- K21.0, Gastro-esophageal reflux disease with esophagitis K22.2, Esophageal obstruction K44.9, Diaphragmatic hernia without obstruction or gangrene K31.89, Other diseases of stomach and duodenum R13.10, Dysphagia, unspecified CPT copyright 2017 [employer]. All rights reserved. The codes documented in this report are preliminary and upon enchilada maker review may be revised to meet current compliance requirements. Atul Cagle MD 12/30/2020 10:39:13 AM This report has been signed electronically. Number of Addenda: 0 Note Initiated On: 12/30/2020 10:00 AM
--- NOTE | 2020-12-30 10:40 | OP.CCLET_ITS ---
12/30/2020 Yassine Lorenzo Re : Upper GI endoscopy procedure for Gisell Vargas Dear Maura This procedure was performed on Wednesday, December 30, 2020. My impressions and recommendations are as follows: Impressions : - LA Grade A reflux esophagitis. Biopsied. - Mild Schatzki ring. Dilated. No significant change at 20mm dilatation - Medium-sized hiatal hernia. - Erythematous mucosa in the antrum. Biopsied. - Normal examined duodenum. Recommendations : - Discharge patient to home. - Resume previous diet. - Continue present medications. - Telephone my office for pathology results in 1 week. My findings are described in the full procedure note, which is enclosed. If I can be of further assistance, please feel free to contact me at Doctor phone number(s): Work: . Sincerely, Atul Cagle MD 12/30/2020 10:39:13 AM This report has been signed electronically.
--- NOTE | 2020-12-30 10:42 | OP.COLON_ITS ---
Patient Name: Gisell Vargas Procedure Date: 12/30/2020 10:17 AM Date of : 1940 Age: 80 Procedure: Colonoscopy Indications: Family history of colon cancer in a first-degree relative Providers: Atul Cagle MD Referring MD: Yassine Lorenzo Medicines: See the Anesthesia note for documentation of the administered medications Patient Profile: Last Colonoscopy: 2015. Complications: No immediate complications. Procedure: Pre-Anesthesia Assessment: - Prior to the procedure, a History and Physical was performed, and patient medications and allergies were reviewed. The patient's tolerance of previous anesthesia was also reviewed. The risks and benefits of the procedure and the sedation options and risks were discussed with the patient. All questions were answered, and informed consent was obtained. Prior Anticoagulants: The patient has taken Coumadin (warfarin), last dose was 2 days prior to procedure. ASA Grade Assessment: III - A patient with severe systemic disease. After reviewing the risks and benefits, the patient was deemed in satisfactory condition to undergo the procedure. After I obtained informed consent, the scope was passed under direct vision. Throughout the procedure, the patient's blood pressure, pulse, and oxygen saturations were monitored continuously. The pediatric colonoscope was introduced through the anus and advanced to the cecum, identified by appendiceal orifice and ileocecal valve. The colonoscopy was performed without difficulty. The patient tolerated the procedure well. The quality of the bowel preparation was good. The ileocecal valve and the appendiceal orifice were photographed. Scope In: 10:19:54 AM Scope Withdrawal Time 0 hours 8 minutes 14 seconds Scope Out: 10:33:37 AM Total Procedure Duration Time 0 hours 13 minutes 43 seconds Findings: The digital rectal exam findings include non-thrombosed external hemorrhoids, non-thrombosed internal hemorrhoids and internal hemorrhoids that prolapse with straining, but require manual replacement into the anal canal (Grade III). Multiple diverticula were found in the sigmoid colon and descending colon. The left colon was moderately tortuous. Advancing the scope required using manual pressure. Impression: - Non-thrombosed external hemorrhoids, non-thrombosed internal hemorrhoids and internal hemorrhoids that prolapse with straining, but require manual replacement into the anal canal (Grade III) found on digital rectal exam. - Diverticulosis in the sigmoid colon and in the descending colon. - Tortuous colon. - No specimens collected. Recommendation: - Discharge patient to home. - Resume previous diet. - Continue present medications. - Repeat colonoscopy in 5 years for surveillance. Procedure Code(s): --- Professional --- 30932, Colonoscopy, flexible; diagnostic, including collection of specimen(s) by brushing or washing, when performed (separate procedure) Diagnosis Code(s): --- Professional --- K64.2, Third degree hemorrhoids K64.4, Residual hemorrhoidal skin tags Z80.0, Family history of malignant neoplasm of digestive organs K57.30, Diverticulosis of large intestine without perforation or abscess without bleeding Q43.8, Other specified congenital malformations of intestine CPT copyright 2017 [employer]. All rights reserved. The codes documented in this report are preliminary and upon health benefits specialist review may be revised to meet current compliance requirements. Atul Cagle MD 12/30/2020 10:41:35 AM This report has been signed electronically. Number of Addenda: 0 Note Initiated On: 12/30/2020 10:17 AM
--- NOTE | 2020-12-30 10:42 | OP.CCLET_ITS ---
12/30/2020 Yassine Lorenzo Re : Colonoscopy procedure for Gisell Vargas Dear Maura This procedure was performed on Wednesday, December 30, 2020. My impressions and recommendations are as follows: Impressions : - Non-thrombosed external hemorrhoids, non-thrombosed internal hemorrhoids and internal hemorrhoids that prolapse with straining, but require manual replacement into the anal canal (Grade III) found on digital rectal exam. - Diverticulosis in the sigmoid colon and in the descending colon. - Tortuous colon. - No specimens collected. Recommendations : - Discharge patient to home. - Resume previous diet. - Continue present medications. - Repeat colonoscopy in 5 years for surveillance. My findings are described in the full procedure note, which is enclosed. If I can be of further assistance, please feel free to contact me at Doctor phone number(s): Work: . Sincerely, Atul Cagle MD 12/30/2020 10:41:35 AM This report has been signed electronically.
== END 2020-12-30 11:21 ==
LOC: EN 08:38 → AC 08:38
PROVIDERS: PCP Family Medicine; Referring Provider Family Medicine; Visit Provider Surgery
PROC: 0DJD8ZZ Inspection of Lower Intestinal Tract, Via Natural or Artificial Opening Endoscopic (ICD-10-PCS; CPT 45378; principal; 2020-12-30 09:40)
DX: K21.00 Gastro-esophageal reflux disease with esophagitis, without bleeding (principal); K22.2 Esophageal obstruction; K29.50 Unspecified chronic gastritis without bleeding; K44.9 Diaphragmatic hernia without obstruction or gangrene; R13.10 Dysphagia, unspecified; Z12.11 Encounter for screening for malignant neoplasm of colon; K64.2 Third degree hemorrhoids; K64.4 Residual hemorrhoidal skin tags; K57.30 Diverticulosis of large intestine without perforation or abscess without bleeding; K62.5 Hemorrhage of anus and rectum; K59.00 Constipation, unspecified; R19.5 Other fecal abnormalities; I48.91 Unspecified atrial fibrillation; E03.9 Hypothyroidism, unspecified; E78.5 Hyperlipidemia, unspecified; M19.90 Unspecified osteoarthritis, unspecified site; E66.9 Obesity, unspecified; Z68.29 Body mass index [BMI] 29.0-29.9, adult; Z95.2 Presence of prosthetic heart valve; Z20.822 Contact with and (suspected) exposure to COVID-19; Z79.01 Long term (current) use of anticoagulants; Z79.899 Other long term (current) drug therapy; Z86.010 Personal history of colon polyps; Z86.73 Personal history of transient ischemic attack (TIA), and cerebral infarction without residual deficits; Z80.0 Family history of malignant neoplasm of digestive organs
CPT/HCPCS: 43239; 43249; G0105; 36416; 85610; 87426; 88305; 88313; 88342; C9803; J7120; J2405